=== PATIENT | male | born 1950 | race Caucasian/White ===

== ENCOUNTER 2020-05-01 09:00 | Outpatient (RCR) | payer OTHER, SELFPAY | END 2020-05-09 12:08 | disposition home or self-care (01) | LOC: HO.WCC 09:00 | PROVIDERS: PCP Podiatrist; Visit Provider Surgery | DX: Z09 Encounter for follow-up examination after completed treatment for conditions other than malignant neoplasm (principal); E11.9 Type 2 diabetes mellitus without complications; Z86.31 Personal history of diabetic foot ulcer; Z87.891 Personal history of nicotine dependence | CPT/HCPCS: 99212 ==

== ENCOUNTER 2020-08-13 11:28 | Outpatient (REF) | payer OTHER, SELFPAY ==
--- NOTE | 2020-08-13 | US_ITS ---
EXAMINATION: US RETROPERITONEAL LIMITED (RENAL ONLY) CLINICAL INFORMATION: Kidney stones. COMPARISON: Renal ultrasound 01/30/2020. CT abdomen and pelvis 01/05/2020. TECHNIQUE: Real-time imaging of the kidneys. Technically slightly limited study secondary to body habitus. FINDINGS: RIGHT KIDNEY: 11.5 x 5.3 x 5.6 cm (SAG x AP x TRV). The kidney is normal in size, contour, and echogenicity. Renal cortical thickness is normal. No calculi or focal parenchymal lesions. No hydronephrosis. LEFT KIDNEY: 10.2 x 5.4 x 5.2 cm (SAG x AP x TRV). The kidney is normal in size, contour, and echogenicity. Renal cortical thickness is normal. No focal parenchymal lesions or hydronephrosis. There are small echogenic stone mid to lower pole measuring 0.4 x 0.3 x 0.3 cm. There is no caliectasis. US/US renal BI IMPRESSION: Small echogenic stone mid /lower pole left kidney measuring 0.4 x 0.3 x 0.3 cm. A 5 x 2 mm calculi was seen in lower pole left kidney on previous CT abdomen exam 01/05/2020. No caliectasis or hydronephrosis seen on either kidney.
== END 2020-08-13 11:29 | disposition home or self-care (01) ==
LOC: HO.HMGCX 11:28
PROVIDERS: PCP Internal Medicine; Visit Provider Urology
DX: N20.0 Calculus of kidney (principal)
CPT/HCPCS: 76775

== ENCOUNTER → 2020-08-19 11:42 | Outpatient (BNVA) | payer OTHER, SELFPAY | PROVIDERS: PCP Internal Medicine; Visit Provider Urology ==

== ENCOUNTER 2020-09-11 10:24 | Inpatient (IN) | payer MEDICARE, OTHER, SELFPAY ==
[2020-09-11] VITALS (9 sets, daily range): BP systolic 109–129; BP diastolic 64–84; PULSE 61–101; RESP 18–247; TEMP 36.5–37.1; O2SAT 88–94; BMI 35.9
--- NOTE | ~2020-09-11 | CT_ITS ---
EXAMINATION: CT CHEST WITHOUT CONTRAST CLINICAL INFORMATION: Shortness of breath, patchy opacity on chest x-ray. COMPARISON: Chest radiograph 09/11/2020, CT abdomen 01/05/2020 TECHNIQUE: Multidetector volumetric CT imaging of the chest was done. Axial MIP volume rendering provided. Sagittal and coronal reformatted images were obtained. This CT examination was performed using dose optimization techniques as appropriate, variously including the following: *Automated exposure control *Adjustment of mA and/or kV according to patient size (this includes techniques or standardized protocols for targeted exams where dose is matched to indication/reason for exam; i.e. extremities or head) *Use of iterative reconstruction technique DLP: 338 mGy-cm FINDINGS: LUNGS: There are scattered bilateral patchy predominantly peripheral irregular geographic groundglass opacities upper and lower zones. There is no dense confluent lobar or segmental airspace consolidation. There is subsegmental atelectasis right medial base. The central airways are clear. No endobronchial lesion or bronchiectasis. No pneumothorax. MEDIASTINUM: There is mild aneurysmal enlargement ascending aorta measuring 4.4 cm in diameter. There are atherosclerotic calcifications coronary arteries. Heart size normal. No pericardial effusion. There is been prior median sternotomy. There are scattered mildly enlarged mediastinal nodes, largest right precarinal space 1.6 cm and left prevascular space near AP window 1.3 cm. There are some smaller nodes seen anteriorly and subcarinal region and possibly right inferior hilum. PLEURA: There is no pleural effusion. No pleural mass or thickening. AXILLA: No lymphadenopathy. UPPER ABDOMEN: Unremarkable. Small splenule under 1 cm left upper quadrant. OSSEOUS STRUCTURES: Prior median sternotomy. No acute bony abnormality. CT/CT chest wo con IMPRESSION: 1. Patchy irregular geographic groundglass opacities upper and lower zones. Findings may be seen with viral pneumonic process. Mild mediastinal adenopathy. No effusion. 2. Mild aneurysmal enlargement ascending aorta 4.4 cm.
--- NOTE | ~2020-09-11 | XR_ITS ---
EXAMINATION: XR CHEST CLINICAL INFORMATION: SOB. COMPARISON: Chest 01/05/2020 TECHNIQUE: Frontal view of the chest was obtained. FINDINGS: The lungs are well-expanded with patchy density seen in the left midlung and left lower lobe. The heart size and pulmonary vascularity is normal. There are median sternotomy sutures from previous intervention. No gross bony abnormality seen. XR/XR chest 1V IMPRESSION: New patchy opacity left midlung and lingula, likely developing infiltrate.
--- NOTE | 2020-09-11 10:30 | ED.SOB ---
HPI - SOB/Dyspnea General Chief Complaint: Dyspnea Stated Complaint: sob Time Seen by Provider: 09/11/20 10:30 Source: patient Mode of arrival: ambulatory Limitations: no limitations History of Present Illness HPI Narrative: Patient is 70 years old with history of diabetes hypertension CVA iron deficiency anemias history of DVT on Coumadin also with history of sleep apnea not using his CPAP comes here from Coumadin clinic for increased fatigue and shortness of breath with dry cough for last 2 weeks was saturating 81-86% at room air no fever no chills no leg swelling no chest pain patient denies any history of lung condition in the past MD elicited complaint: shortness of breath and cough Onset (ago): day(s) (10) Related Data Home Medications Medication Instructions Recorded Confirmed blood sugar diagnostic #10 ea 08/19/20 dulaglutide 1.5 mg/0.5 mL 3 mg SUBCUT QWEEK 08/19/20 subcutaneous pen injector gabapentin 300 mg capsule 300 mg PO TID 08/19/20 metoprolol tartrate 25 mg tablet 25 mg PO BID 08/19/20 omeprazole 20 mg capsule,delayed 20 mg PO DAILY 08/19/20 release pyridoxine (vitamin B6) 50 mg 50 mg PO DAILY 08/19/20 tablet valsartan 160 mg tablet 160 mg PO DAILY 08/19/20 warfarin 2.5 mg tablet 500f7.5 mg PO DAILY 08/19/20 Previous Rx's Medication Instructions Recorded pyridoxine (vitamin B6) 100 mg 100 mg PO DAILY #90 tab 08/19/20 tablet Allergies Allergy/AdvReac Type Severity Reaction Status Date / Time oxycodone [From PERCOCET] Allergy Unknown FEEL LIKE Unverified 04/17/20 16:28 I AM FLOATING Review of Systems Review of Systems: Constitutional : No Weight loss, No Fever, No Chills ENT/Mouth : No sore throat, No Rhinorrhea Eyes: No Eye Pain, No Swelling Cardiovascular : No Chest Pain, no palpitations Respiratory : ++ Cough, No Sputum, +shortness of breath Gastrointestinal : no Nausea, No Vomiting, No Diarrhea, No abdominal Pain, no black stools Genitourinary : No Dysuria, No Urinary Frequency Musculoskeletal : No joint pain, No Myalgias, No Joint Swelling Skin : No Skin Lesions, No rash Neuro : + Weakness, No Numbness, No Dizziness, No Headache Psych : No Anxiety/Panic, No Depression Heme/Lymph: No Bruising, No Lymphadenopathy Endocrine : No Polyuria, No Polydipsia All other systems reviewed and are negative [facility] Past Medical History Medical History MAXIMILIAN (acute kidney injury) B12 deficiency CVA (cerebral vascular accident) Diabetes Diverticulitis Gout HTN (hypertension) Venous insufficiency Social History Social History Alcohol intake: never Smoking Status: Former smoker Smoked in Last 30 Days: No Use of substances other than those prescribed or required for medical reasons: No Advance Directives: No Advance Directives Information Provided: No Physical Exam Vital Signs: Vital Signs: Last Vital Signs Temp 98.6 F 09/11/20 10:35 Pulse 101 H 09/11/20 10:35 Resp 21 H 09/11/20 10:35 BP 117/84 09/11/20 10:35 Pulse Ox 94 09/11/20 10:41 Body Mass Index 35.9 Const: General: cooperative, comfortable and in distress mild Nutritional Appearance: obese Orientation/consciousness: patient oriented x3 HENMT: Head: Yes normocephalic Ears: hearing grossly normal bilaterally Mouth: Normal oral and palatal mucosa present Eyes: General: appearance normal, both eyes and all related structures Neck: Neck: Yes full ROM, Yes no lymphadenopathy and Yes no JVD Chest: Chest palpation & inspection: normal inspection of the chest Resp: Effort & Inspection: normal respiratory effort Auscultation: crackles on the left, rales, no rhonchi and no wheezes Cardio: Jugular venous distension: no JVD Palpation: normal PMI Rate: regular rate Rhythm: regular rhythm Heart sounds: S1 normal heart sound present, S2 normal heart sound present and no murmurs Peripheral pulses: Peripheral pulses 2+ throughout GI: Inspection: Yes normal to inspection Palpation (GI): Soft to palpation and nontender Auscultation: normal bowel sounds Skin: General skin exam: no rashes or lesions noted Neuro: General: patient oriented x3 Extrem: General: Yes normal to inspection, Yes no calf tenderness and No pedal edema MDM - SOB/Dyspnea Differential Diagnosis Differential diagnosis: Likely congestive heart failure and pneumonia Lab Data Result diagrams: 09/11/20 10:50 09/11/20 10:49 Labs: Lab Results 09/11/20 09/11/20 09/11/20 Range/Units 10:48 10:49 10:49 WBC (4.8-10.8) X10*3/uL RBC (4.60-5.80) X10*6/uL Hgb (14.0-18.0) g/dl Hct (42-52) % MCV (80-98) fL MCH (27.0-33.0) pg MCHC (31.0-36.0) g/dl RDW (11.0-16.0) % Plt Count (160-400) X10*3/uL MPV (9.4-12.4) fL Immature Gran % (Auto) (0.0-0.4) % Neut % (Auto) (45-73) % Lymph % (Auto) (20-40) % [place] % (Auto) (2-11) % Eos % (Auto) (0-4) % Baso % (Auto) (0-2) % Lymph # (Auto) (1.2-4.9) X10*3/uL [place] # (Auto) (0.1-1.2) X10*3/uL Eos # (Auto) (0.0-0.4) X10*3/uL Baso # (Auto) (0.0-0.2) X10*3/uL Abs Immat Gran (auto) (0.00-0.03) X10*3/uL Absolute Neuts (auto) (2.0-8.3) X10*3/uL Absolute Nucleated RBC (0.0-0.012) X10*3/uL Nucleated RBC % (auto) (0.0-0.2) /100WBC Smear Tech's Comments PT 18.4 H (10.8-13.0) SEC INR 1.5 H (0.9-1.1) APTT 26.2 (24.1-38.0) SEC Sodium 134 L (135-145) mmol/L Potassium 5.0 (3.3-5.1) mmol/L Chloride 96 (96-108) mmol/L Carbon Dioxide 25 (22-29) mmol/L Anion Gap 18 (12-20) BUN 42 H (9-16) mg/dL Creatinine 1.62 H (0.5-1.4) mg/dL Estim Creat Clear Calc 55.9 Estimated GFR 42 Random Glucose 297 H (60-115) mg/dL Lactic Acid (0.5-2.0) mmol/L Calcium 9.6 (8.4-10.2) mg/dL Total Bilirubin 1.2 H (0.0-1.0) mg/dL Direct Bilirubin 0.8 H (0.0-0.5) mg/dL AST 57 H (5-37) U/L ALT 47 H (0-40) U/L Alkaline Phosphatase 63 (39-117) U/L Troponin I High Sens (<3.5-35.0) ng/L Total Protein 7.0 (6.5-8.0) g/dL Albumin 3.5 (3.5-5.0) g/dL COVID-19 (JEFF) Positive A (Negative) COVID-19 Clin Com See Note 09/11/20 09/11/20 09/11/20 Range/Units 10:50 10:50 10:50 WBC 7.0 (4.8-10.8) X10*3/uL RBC 5.57 (4.60-5.80) X10*6/uL Hgb 17.3 (14.0-18.0) g/dl Hct 51.1 (42-52) % MCV 91.7 (80-98) fL MCH 31.1 (27.0-33.0) pg MCHC 33.9 (31.0-36.0) g/dl RDW 13.2 (11.0-16.0) % Plt Count 163 (160-400) X10*3/uL MPV 10.8 (9.4-12.4) fL Immature Gran % (Auto) 0.3 (0.0-0.4) % Neut % (Auto) 83.5 H (45-73) % Lymph % (Auto) 10.5 L (20-40) % [place] % (Auto) 5.5 (2-11) % Eos % (Auto) 0.1 (0-4) % Baso % (Auto) 0.1 (0-2) % Lymph # (Auto) 0.7 L (1.2-4.9) X10*3/uL [place] # (Auto) 0.4 (0.1-1.2) X10*3/uL Eos # (Auto) 0.0 (0.0-0.4) X10*3/uL Baso # (Auto) 0.0 (0.0-0.2) X10*3/uL Abs Immat Gran (auto) 0.02 (0.00-0.03) X10*3/uL Absolute Neuts (auto) 5.8 (2.0-8.3) X10*3/uL Absolute Nucleated RBC 0.000 (0.0-0.012) X10*3/uL Nucleated RBC % (auto) 0.0 (0.0-0.2) /100WBC Smear Tech's Comments VERIFIED PT (10.8-13.0) SEC INR (0.9-1.1) APTT (24.1-38.0) SEC Sodium (135-145) mmol/L Potassium (3.3-5.1) mmol/L Chloride (96-108) mmol/L Carbon Dioxide (22-29) mmol/L Anion Gap (12-20) BUN (9-16) mg/dL Creatinine (0.5-1.4) mg/dL Estim Creat Clear Calc Estimated GFR Random Glucose (60-115) mg/dL Lactic Acid 2.3 H* (0.5-2.0) mmol/L Calcium (8.4-10.2) mg/dL Total Bilirubin (0.0-1.0) mg/dL Direct Bilirubin (0.0-0.5) mg/dL AST (5-37) U/L ALT (0-40) U/L Alkaline Phosphatase (39-117) U/L Troponin I High Sens 9.0 (<3.5-35.0) ng/L Total Protein (6.5-8.0) g/dL Albumin (3.5-5.0) g/dL COVID-19 (JEFF) (Negative) COVID-19 Clin Com ECG Data Attestation: I personally reviewed and interpreted this ECG as follows: Interpretation: Sinus tachycardia heart rate 105 beats per minute right bundle-branch block LVH no acute ST T wave changes no acute ischemia Discharge Plan Discharge Prescriptions: No Action metoprolol tartrate 25 mg tablet 25 mg PO BID RF: 0 pyridoxine (vitamin B6) 50 mg tablet 50 mg PO DAILY RF: 0 Trulicity 1.5 mg/0.5 mL pen injector 3 mg subcut QWEEK RF: 0 valsartan 160 mg tablet 160 mg PO DAILY RF: 0 warfarin 2.5 mg tablet 500f7.5 mg PO DAILY RF: 0 gabapentin 300 mg capsule 300 mg PO TID RF: 0 (DME) [employer] Ultra Blue Test Strip Strip See Rx Instructions strip .ROUTE .MEDSUPPLY Qty: 10 RF: 0 omeprazole 20 mg capsule,delayed release(DR/EC) 20 mg PO DAILY RF: 0 pyridoxine (vitamin B6) 100 mg tablet 100 mg PO DAILY Qty: 90 RF: 3
--- NOTE | 2020-09-11 10:40 | ECG_ITS ---
Test Reason : SOB Blood Pressure : / mmHG Vent. Rate : 105 BPM Atrial Rate : 105 BPM P-R Int : 180 ms QRS Dur : 134 ms QT Int : 376 ms P-R-T Axes : -18 -78 018 degrees QTc Int : 496 ms Sinus tachycardia Right bundle branch block Left anterior fascicular block Bifascicular block Minimal voltage criteria for LVH, may be normal variant Abnormal ECG When compared with ECG of 05-JAN-2020 19:00, [place] interval has decreased Vent. rate has increased BY 39 BPM Right bundle branch block is now Present Referred By: Deni Roman Electronically Signed By:MEHRDAD MCGREGOR MD
[2020-09-11 10:58] LABS: Basophils Percent Auto 0.1 % (0-2); Eosinophils Percent Auto 0.1 % (0-4); Hematocrit 51.1 % (42-52); Hemoglobin 17.3 g/dl (14.0-18.0); Imm Gran Abs Auto 0.02 X10*3/uL (0.00-0.03); Imm Gran Pct Auto 0.3 % (0.0-0.4); Lymphocytes Absolute Auto 0.7 X10*3/uL (1.2-4.9); Lymphocytes Percent Auto 10.5 % (20-40); MANUAL DIFF FLAG SCAN; Mean Corpuscular HGB Conc 33.9 g/dl (31.0-36.0); Mean Corpuscular Hemoglobin 31.1 pg (27.0-33.0); Mean Corpuscular Volume 91.7 fL (80-98); Mean Platelet Volume 10.8 fL (9.4-12.4); Monocytes Absolute Auto 0.4 X10*3/uL (0.1-1.2); Monocytes Percent Auto 5.5 % (2-11); Neutrophils Absolute Auto 5.8 X10*3/uL (2.0-8.3); Neutrophils Percent Auto 83.5 % (45-73); Platelet Count 163 X10*3/uL (160-400); Red Blood Count 5.57 X10*6/uL (4.60-5.80); Red Cell Distribution Width 13.2 % (11.0-16.0); SCAN SMEAR FLAG 1
[2020-09-11 11:07] LABS: INTERNATIONAL NORM RATIO 1.5 (0.9-1.1); Prothrombin Time 18.4 SEC (10.8-13.0)
[2020-09-11 11:09] LABS: Partial Thromboplastin Time 26.2 SEC (24.1-38.0)
[2020-09-11 11:15] LABS: COVID-19 Test Positive (Negative)
[2020-09-11 11:22] LABS: Alanine Aminotransferase 47 U/L (0-40); Albumin Level 3.5 g/dL (3.5-5.0); Alkaline Phosphatase 63 U/L (39-117); Anion Gap 18 (12-20); Aspartate Amino Transferase 57 U/L (5-37); Bilirubin Direct 0.8 mg/dL (0.0-0.5); Bilirubin Total 1.2 mg/dL (0.0-1.0); Blood Urea Nitrogen 42 mg/dL (9-16); Calcium 9.6 mg/dL (8.4-10.2); Carbon Dioxide 25 mmol/L (22-29); Chloride 96 mmol/L (96-108); Creatinine Clr Calc Pharmacy 55.9; Estimated Glomerular Filt Rate 42; Glucose Random 297 mg/dL (60-115); Sodium 134 mmol/L (135-145)
[2020-09-11 11:23] LABS: Lactic Acid 2.3 mmol/L (0.5-2.0)
[2020-09-11 11:32] LABS: SLIDE REVIEW VERIFIED
[2020-09-11 12:01] LABS: D Dimer 1269 NG/ML
[2020-09-11] MEDS: cefTRIAXone sodium 1 GM in 0.9 % Sodium Chloride 50 ML IV (12:03)
[2020-09-11 12:10] LABS: C Reactive Protein 7.01 mg/dL (< or = 0.50); Lactate Dehydrogenase 216 U/L (118-273)
[2020-09-11 12:31] LABS: Ferritin 1200 ng/mL (20-250)
[2020-09-11] MEDS: Doxycycline Hyclate 100 MG in 0.9 % Sodium Chloride 250 ML 166.67 MG IV (12:31)
[2020-09-11 12:37] LABS: Procalcitonin 0.15 ng/mL
[2020-09-11 12:55] LABS: Reflex Lactate? Lactic Acid Added
--- NOTE | 2020-09-11 12:58 | P.HPHOSP_ITS ---
History of Present Illness Date of Service: 09/11/20 Chief Complaint: Fatigue This is a 70 year year old male who presented to the emergency department due to fatigue. He went to the Coumadin clinic today to have his INR checked and the nurse there did not feel that he looked well so recommended that he come to the emergency department for evaluation. He reports approximately 10 days of feeling tired. He reports vague shortness of breath primarily with exertion. He reports a cough in the morning when he wakes up. He denies any fever, chills, muscle aches. He reports chronic issues with both taste and smell which does not seem to have changed recently. On arrival his oxygen saturation was 88% on room air. His workup was significant for opacity. He tested positive for coronavirus. His initial lactic acid was 2.3. Creatinine was 1.62 which is at his baseline. Were elevated with ferritin 1200, LDH 216, CRP 7.01. He was treated with antibiotic and IV dexamethasone. Given his requirement for oxygen a decision was made to admit him for further management. Review of Systems Review of Systems: Yes all other systems are reviewed and are negative Constitutional: Constitutional: Denies chills and Denies fever(s) Cardiovascular: Cardiovascular: Denies chest pain and Reports dyspnea Respiratory: Respiratory: Reports cough and Reports dyspnea Gastrointestinal: Gastrointestinal: Denies abdominal pain [facility] Medical History (Updated 09/11/20 @ 16:10 by Deni Roman MD) MAXIMILIAN (acute kidney injury) B12 deficiency CKD (chronic kidney disease) stage 3, GFR 30-59 ml/min CVA (cerebral vascular accident) Diabetes Diverticulitis Gout HTN (hypertension) ROBERTO (obstructive sleep apnea) Venous insufficiency Functional capacity: independent ambulation Family History (Updated 09/11/20 @ 13:05 by CLOTILDE Barrera) Mother No problems noted. Father No problems noted. Family history: reviewed and not pertinent Surgical History (Updated 09/11/20 @ 13:04 by CLOTILDE Barrera) S/P patent foramen ovale closure Social History (Updated 09/11/20 @ 13:05 by CLOTILDE Barrera) Household Members: None Alcohol intake: current Alcohol intake frequency: holidays/special occasions only Smoking Status: Former smoker Smoked in Last 30 Days: No Use of substances other than those prescribed or required for medical reasons: No Advance Directives: No Advance Directives Information Provided: No Meds Allergies Allergy/AdvReac Type Severity Reaction Status Date / Time oxycodone [From PERCOCET] Allergy Unknown FEEL LIKE Unverified 04/17/20 16:28 I AM FLOATING Active Medications: Current Medications Generic Name Dose Route Start Last Admin Trade Name Freq PRN Reason Stop Dose Admin Doxycycline Hyclate 100 mg/ 250 mls @ 166.67 mls/hr 09/11/20 11:36 09/11/20 12:31 Sodium Chloride IV 09/11/20 13:05 166.67 mls/hr ONCE ONE Administration Pharmacy Consult 1 each 09/11/20 12:12 Consult Rx Perform Med Rec MISCELLANE ONCE PRN Consult order Home Medications Medication Instructions Recorded Confirmed Last Taken Type blood sugar diagnostic #10 ea 08/19/20 Unknown History dulaglutide 1.5 mg/0.5 mL 1.5 mg SUBCUT QWEEK 08/19/20 09/11/20 Unknown History subcutaneous pen injector metoprolol tartrate 25 mg tablet 25 mg PO BID 08/19/20 09/11/20 Unknown History omeprazole 20 mg capsule,delayed 20 mg PO DAILY 08/19/20 09/11/20 Unknown History release valsartan 160 mg tablet 160 mg PO DAILY 08/19/20 09/11/20 Unknown History warfarin 2.5 mg tablet 5 mg PO DAILY@1600 08/19/20 09/11/20 Unknown History allopurinol 1 tab PO DAILY 09/11/20 09/11/20 Unknown History cyanocobalamin (vitamin B-12) 1 tab PO DAILY 09/11/20 09/11/20 Unknown History ferrous sulfate 1 tab PO DAILY 09/11/20 09/11/20 Unknown History Physical Exam Vital Signs and Narrative: Vital Signs: Last Vital Signs Temp 98.6 F 09/11/20 10:35 Pulse 99 09/11/20 12:06 Resp 247 H 09/11/20 12:06 BP 123/65 09/11/20 12:06 Pulse Ox 94 09/11/20 12:06 Body Mass Index 35.9 Const: General: comfortable, alert and awake Nutritional Appearance: well nourished and obese Orientation/consciousness: patient oriented x3 HENMT: Head: Yes normocephalic and Yes atraumatic Eyes: Sclerae: sclerae normal Chest: Chest palpation & inspection: normal inspection of the chest Resp: Effort & Inspection: able to speak in complete sentences and tachypneic Cardio: Rate: regular rate Rhythm: regular rhythm GI: Palpation (GI): Soft to palpation and nontender Skin: General skin exam: no rashes or lesions noted Neuro: General: patient oriented x3 Cranial nerves: Yes CN's II-XII intact bilaterally and Yes Bilaterally intact EOM present Extrem: General: Yes normal to inspection Psych: Attitude: cooperative Results Labs CBC and Chem 7: 09/11/20 10:50 09/11/20 10:49 Labs: Laboratory Results - last 24 hr 09/11/20 09/11/20 09/11/20 10:48 10:49 10:49 MCV MCH MCHC RDW Plt Count MPV Immature Gran % (Auto) Neut % (Auto) Lymph % (Auto) [place] % (Auto) Eos % (Auto) Baso % (Auto) Lymph # (Auto) [place] # (Auto) Eos # (Auto) Baso # (Auto) Abs Immat Gran (auto) Absolute Neuts (auto) Absolute Nucleated RBC Nucleated RBC % (auto) Smear Tech's Comments PT 18.4 H INR 1.5 H APTT 26.2 D-Dimer 1269 Anion Gap 18 Estim Creat Clear Calc 55.9 Estimated GFR 42 Random Glucose 297 H Lactic Acid Calcium 9.6 Ferritin 1200 H Total Bilirubin 1.2 H Direct Bilirubin 0.8 H AST 57 H ALT 47 H Alkaline Phosphatase 63 Lactate Dehydrogenase 216 Troponin I High Sens C-Reactive Protein 7.01 H Total Protein 7.0 Albumin 3.5 Procalcitonin COVID-19 (JEFF) Positive A COVID-19 Clin Com See Note 09/11/20 09/11/20 09/11/20 10:49 10:50 10:50 MCV 91.7 MCH 31.1 MCHC 33.9 RDW 13.2 Plt Count 163 MPV 10.8 Immature Gran % (Auto) 0.3 Neut % (Auto) 83.5 H Lymph % (Auto) 10.5 L [place] % (Auto) 5.5 Eos % (Auto) 0.1 Baso % (Auto) 0.1 Lymph # (Auto) 0.7 L [place] # (Auto) 0.4 Eos # (Auto) 0.0 Baso # (Auto) 0.0 Abs Immat Gran (auto) 0.02 Absolute Neuts (auto) 5.8 Absolute Nucleated RBC 0.000 Nucleated RBC % (auto) 0.0 Smear Tech's Comments VERIFIED PT INR APTT D-Dimer Anion Gap Estim Creat Clear Calc Estimated GFR Random Glucose Lactic Acid 2.3 H* Calcium Ferritin Total Bilirubin Direct Bilirubin AST ALT Alkaline Phosphatase Lactate Dehydrogenase Troponin I High Sens C-Reactive Protein Total Protein Albumin Procalcitonin 0.15 COVID-19 (JEFF) COVID-19 Clin Com 09/11/20 10:50 MCV MCH MCHC RDW Plt Count MPV Immature Gran % (Auto) Neut % (Auto) Lymph % (Auto) [place] % (Auto) Eos % (Auto) Baso % (Auto) Lymph # (Auto) [place] # (Auto) Eos # (Auto) Baso # (Auto) Abs Immat Gran (auto) Absolute Neuts (auto) Absolute Nucleated RBC Nucleated RBC % (auto) Smear Tech's Comments PT INR APTT D-Dimer Anion Gap Estim Creat Clear Calc Estimated GFR Random Glucose Lactic Acid Calcium Ferritin Total Bilirubin Direct Bilirubin AST ALT Alkaline Phosphatase Lactate Dehydrogenase Troponin I High Sens 9.0 C-Reactive Protein Total Protein Albumin Procalcitonin COVID-19 (JEFF) COVID-19 Clin Com Imaging Radiologist's Impressions: Impressions Chest X-Ray 09/11/20 10:40 IMPRESSION: New patchy opacity left midlung and lingula, likely developing infiltrate. Assessment and Plan (1) Pneumonia due to COVID-19 virus: Status: Acute (2) Acute respiratory failure with hypoxia: Status: Acute This is a 70-year-old male with diabetes department CKD, hypertension, PFO status post closure on coumadin, who presents to the emergency department with fatigue found to be hypoxic and COVID-19 positive Acute respiratory failure with hypoxia Pneumonia secondary to COVID-19 Viral Sepsis CRP 7.01, Ferritin 1200, LDH 216 Saturating 93 on 1 L -IV dexamethasone -supplemental o2 prn -albuterol inhaler prn for SOB PFO s/p repair -continue Coumadin -monitor INR daily CKD 3 Creatinine at baseline DM -SSI, POCs -convert Trulicity to Lantus ROBERTO Unable to tolerate CPAP Hypertension Continue valsartan metoprolol DVT prophylaxis-coumadin Code status - full code This case was discussed with Dr. Morgan
--- NOTE | 2020-09-11 13:32 | P.EN_ITS ---
Event Note Date of Service: 09/11/20 Event Note: 70yo M with HTN, DM2, hx of CVA, PFO s/p occlusion and anticoagula selvin with warfarin, ROBERTO not on CPAP, CKD3, gout, venous insufficiency presenting on d#10 of illness involving worsening fatigue, dyspnea and cough. no fever. no chest pain. sent in from coumadin clinic with SaO2 81-86 on RA on exam, mildly dyspneic. BP 114/68 HR 99 RR 17 Sa 94 on 1L Gen: in no acute distress HEENT: sclera anicteric, moist mucus membranes Neck: supple Lungs: no respiratory distress, auscultation deferred due to COVID-19 Heart: normal peripheral pulses Abd: soft, non-tender, non-distended Ext: no cyanosis, clubbing, or edema Skin: warm/well-perfused Neuro: alert and oriented x3, no focal findings Psych: appropriate affect labs notable for WBC 7 with 10.5% lymphs, INR 1.5, D-dimer 1269, SCr 1.62 (baselien), glu 297, LA 2.3, ferritin 1200, AST 57, ALT 47, CRP 7.01, hs-Tn-I 9, PCT 0.15, SARS-CoV2 PCR positive CXR with patchy LLL/lingular infiltrate plan admit to [facility] on isolation give dexamethasone 6 mg/d x10d. out of window for remdesivir. supplemental O2, encourage awake proning. continue warfarin anticoagulation, monitor INR + SCr, give basal/bolus insulin, continue valsartan + metoprolol. he is FULL CODE I left a message for the pt's sister Larissa [phone] at the pt's request
[2020-09-11] MEDS: 0.9 % Sodium Chloride Flush 3 ML SYRINGE IVFLUSH (15:48)
--- NOTE | 2020-09-11 16:40 | PC.NURSE ---
report given to [facility] [place]
[2020-09-11] MEDS: Warfarin Sodium 5 MG TABLET PO (17:23)
[2020-09-11] MEDS: Insulin Lispro 100 UNIT/ML 3 ML VIAL SUBCUT ×2 (18:23→20:48)
[2020-09-11 18:27] LABS: Glucose, Whole Blood 386 mg/dL (60-115)
[2020-09-11 19:31] LABS: ~Lactic Acid-LAB USE ONLY 1.7 mmol/L (0.5-2.0)
[2020-09-11 19:43] LABS: Troponin-I High Sensitivity 6.1 ng/L (<3.5-35.0)
[2020-09-11 20:31] LABS: Glucose, Whole Blood 413 mg/dL (60-115)
[2020-09-11] MEDS: Metoprolol Tartrate 25 MG TABLET PO (20:47)
[2020-09-11] MEDS: Insulin Lispro 100 UNIT/ML 3 ML VIAL 10 UNIT SUBCUT (20:48)
[2020-09-12] VITALS (9 sets, daily range): BP systolic 91–158; BP diastolic 50–79; PULSE 55–93; RESP 18–94; TEMP 35.8–37.1; O2SAT 90–98; BMI 35.9
[2020-09-12] MEDS: 0.9 % Sodium Chloride Flush 3 ML SYRINGE IVFLUSH ×4 (00:17→21:01)
[2020-09-12] MEDS: Omeprazole 20 MG CAPSULE.DR PO (05:54)
[2020-09-12 06:23] LABS: Basophils Percent Auto 0.2 % (0-2); Eosinophils Percent Auto 0.2 % (0-4); Hematocrit 42.9 % (42-52); Imm Gran Abs Auto 0.03 X10*3/uL (0.00-0.03); Imm Gran Pct Auto 0.5 % (0.0-0.4); Lymphocytes Absolute Auto 0.8 X10*3/uL (1.2-4.9); Lymphocytes Percent Auto 12.3 % (20-40); MANUAL DIFF FLAG SCAN; Mean Corpuscular HGB Conc 37.3 g/dl (31.0-36.0); Mean Corpuscular Hemoglobin 35.3 pg (27.0-33.0); Mean Corpuscular Volume 94.7 fL (80-98); Mean Platelet Volume 11.2 fL (9.4-12.4); Monocytes Absolute Auto 0.4 X10*3/uL (0.1-1.2); Monocytes Percent Auto 6.7 % (2-11); Neutrophils Absolute Auto 5.3 X10*3/uL (2.0-8.3); Neutrophils Percent Auto 80.1 % (45-73); Platelet Count 155 X10*3/uL (160-400); Red Blood Count 4.53 X10*6/uL (4.60-5.80); Red Cell Distribution Width 13.8 % (11.0-16.0); SCAN SMEAR FLAG 1; White Blood Count 6.6 X10*3/uL (4.8-10.8)
[2020-09-12 06:25] LABS: INTERNATIONAL NORM RATIO 1.7 (0.9-1.1); Prothrombin Time 20.1 SEC (10.8-13.0)
[2020-09-12 06:45] LABS: Anion Gap 17 (12-20); Blood Urea Nitrogen 45 mg/dL (9-16); Calcium 9.6 mg/dL (8.4-10.2); Carbon Dioxide 25 mmol/L (22-29); Chloride 97 mmol/L (96-108); Creatinine Clr Calc Pharmacy 64.2; Estimated Glomerular Filt Rate 50; Glucose Random 297 mg/dL (60-115); Potassium 4.6 mmol/L (3.3-5.1); Sodium 134 mmol/L (135-145)
[2020-09-12 07:53] LABS: Glucose, Whole Blood 295 mg/dL (60-115)
[2020-09-12 07:55] LABS: SLIDE REVIEW VERIFIED
[2020-09-12] MEDS: Cyanocobalamin (Vitamin B-12) 1,000 MCG TABLET 1000 MCG PO (08:17)
[2020-09-12] MEDS: Pyridoxine HCl (Vitamin B6) 50 MG TABLET 100 MG PO (08:17)
[2020-09-12] MEDS: Ferrous Sulfate 324 MG TABLET.DR PO (08:17)
[2020-09-12] MEDS: allopurinoL 100 MG TABLET PO (08:17)
[2020-09-12] MEDS: Insulin Glargine,Hum.rec.anlog 100 UNIT/ML 10 ML VIAL 20 UNIT SUBCUT (08:18)
[2020-09-12] MEDS: Insulin Lispro 100 UNIT/ML 3 ML VIAL SUBCUT ×4 (08:18→21:01)
[2020-09-12] MEDS: Metoprolol Tartrate 25 MG TABLET PO ×2 (08:19→21:00)
[2020-09-12] MEDS: Valsartan 160 MG TABLET PO (08:19)
[2020-09-12 08:22] LABS: Estimated Average Glucose 186 mg/dL; Hemoglobin A1c % 8.1 %
--- NOTE | 2020-09-12 08:29 | MHC.CM.PN ---
Patient is on the Covid Unit and unable to be reached by phone; CM spoke with Primary Contact/Sister/Larisas @ [phone]. Patient lives alone in a house and he is functionally independent. Home is the goal for dc and CM has initiated and will follow for dc planning. Patient uses the [facility] in [place] and his PCP is Dr. Jeanne Mendez.
--- NOTE | 2020-09-12 10:35 | HO.PM.IMPN ---
Subjective Subjective Date of Service: 09/12/20 Interval History: dyspnea remains on 4L O2 via NC no fever no chest pain no GI symptoms Physical Exam Vital Signs: Vital Signs: Last Vital Signs Temp 97.2 F 09/12/20 07:52 Pulse 60 09/12/20 08:19 Resp 18 09/12/20 07:52 BP 138/65 09/12/20 08:19 Pulse Ox 90 L 09/12/20 07:52 Body Mass Index 35.9 Gen: in no acute distress HEENT: sclera anicteric, moist mucus membranes Neck: supple Lungs: no respiratory distress, auscultation deferred due to COVID-19 Heart: normal peripheral pulses Abd: soft, non-tender, non-distended Ext: no cyanosis, clubbing, or edema Skin: warm/well-perfused Neuro: alert and oriented x3, no focal findings Psych: appropriate affect Objective Data Current Medications Generic Name Dose Route Start Last Admin Trade Name Freq PRN Reason Stop Dose Admin Acetaminophen 650 mg 09/11/20 15:03 Acetaminophen 325 Mg Tablet PO Q6H PRN Pain, Mild (Pain Scale 1-3) Albuterol Sulfate 2 puff 09/11/20 15:03 Albuterol Sulfate 90 Mcg 8 Gm Inhaler INHALE RQ4H PRN Shortness of Breath Allopurinol 100 mg 09/12/20 09:00 09/12/20 08:17 Allopurinol 100 Mg Tablet PO 100 mg DAILY MAHESH Administration Cyanocobalamin 1,000 mcg 09/12/20 09:00 09/12/20 08:17 Cyanocobalamin (Vitamin B-12) 1,000 Mcg Tablet PO 1,000 mcg DAILY MAHESH Administration Dexamethasone Sodium Phosphate 6 mg 09/12/20 09:00 09/12/20 08:17 Dexamethasone Sod Phosphate/Pf 10 Mg/Ml Vial IVPUSH 6 mg DAILY MAHESH Administration Docusate Sodium 100 mg 09/11/20 15:03 Docusate Sodium 100 Mg Capsule PO DAILY PRN Constipation Ferrous Sulfate 324 mg 09/12/20 09:00 09/12/20 08:17 Ferrous Sulfate 324 Mg Tablet. PO 324 mg DAILY MAHESH Administration Insulin Glargine 20 unit 09/12/20 09:00 09/12/20 08:18 Insulin Glargine,Hum.Rec.Anlog 100 Unit/Ml 10 Ml Vial SUBCUT 20 unit DAILY MAHESH Administration Insulin Human Lispro 0 unit 09/11/20 16:30 09/12/20 08:18 Insulin Lispro 100 Unit/Ml 3 Ml Vial SUBCUT 6 unit QIDACHS [facility] Administration Protocol Metoprolol Tartrate 25 mg 09/11/20 21:00 09/12/20 08:19 Metoprolol Tartrate 25 Mg Tablet PO 25 mg BID MAHESH Administration Protocol Omeprazole 20 mg 09/12/20 06:30 09/12/20 05:54 Omeprazole 20 Mg Capsule.Dr PO 20 mg DAILY@0630 [facility] Administration Ondansetron HCl 4 mg 09/11/20 15:03 Ondansetron Hcl 4 Mg/2 Ml Vial IVPUSH Q8H PRN Nausea and Vomiting Pharmacy Consult 1 each 09/11/20 12:12 Consult Rx Perform Med Rec MISCELLANE ONCE PRN Consult order Pyridoxine HCl 100 mg 09/12/20 09:00 09/12/20 08:17 Pyridoxine Hcl (Vitamin B6) 50 Mg Tablet PO 100 mg DAILY [facility] Administration Sodium Chloride 3 ml 09/11/20 16:00 09/12/20 08:19 0.9 % Sodium Chloride Flush 3 Ml Syringe IVFLUSH 3 ml QSHIFT [facility] Administration Valsartan 160 mg 09/12/20 09:00 09/12/20 08:19 Valsartan 160 Mg Tablet PO 160 mg DAILY [facility] Administration Protocol Warfarin Sodium 5 mg 09/11/20 16:00 09/11/20 17:23 Warfarin Sodium 5 Mg Tablet PO 5 mg DAILY@1600 [facility] Administration Labs CBC & Chem 7: 09/12/20 05:29 09/12/20 05:29 Labs: Laboratory Results - last 24 hr 09/11/20 09/11/20 09/11/20 10:48 10:49 10:49 WBC RBC Hgb Hct MCV MCH MCHC RDW Plt Count MPV Immature Gran % (Auto) Neut % (Auto) Lymph % (Auto) [place] % (Auto) Eos % (Auto) Baso % (Auto) Lymph # (Auto) [place] # (Auto) Eos # (Auto) Baso # (Auto) Abs Immat Gran (auto) Absolute Neuts (auto) Absolute Nucleated RBC Nucleated RBC % (auto) Smear Tech's Comments PT 18.4 H INR 1.5 H APTT 26.2 D-Dimer 1269 Sodium 134 L Potassium 5.0 Chloride 96 Carbon Dioxide 25 Anion Gap 18 BUN 42 H Creatinine 1.62 H Estim Creat Clear Calc 55.9 Estimated GFR 42 POC Glucose Random Glucose 297 H Estimat Average Glucose Hemoglobin A1c % Lactic Acid Lactic Acid Fup @ 2Hr Calcium 9.6 Ferritin 1200 H Total Bilirubin 1.2 H Direct Bilirubin 0.8 H AST 57 H ALT 47 H Alkaline Phosphatase 63 Lactate Dehydrogenase 216 Troponin I High Sens C-Reactive Protein 7.01 H Total Protein 7.0 Albumin 3.5 Procalcitonin COVID-19 (JEFF) Positive A COVID-19 Clin Com See Note 09/11/20 09/11/20 09/11/20 10:49 10:50 10:50 WBC 7.0 RBC 5.57 Hgb 17.3 Hct 51.1 MCV 91.7 MCH 31.1 MCHC 33.9 RDW 13.2 Plt Count 163 MPV 10.8 Immature Gran % (Auto) 0.3 Neut % (Auto) 83.5 H Lymph % (Auto) 10.5 L [place] % (Auto) 5.5 Eos % (Auto) 0.1 Baso % (Auto) 0.1 Lymph # (Auto) 0.7 L [place] # (Auto) 0.4 Eos # (Auto) 0.0 Baso # (Auto) 0.0 Abs Immat Gran (auto) 0.02 Absolute Neuts (auto) 5.8 Absolute Nucleated RBC 0.000 Nucleated RBC % (auto) 0.0 Smear Tech's Comments VERIFIED PT INR APTT D-Dimer Sodium Potassium Chloride Carbon Dioxide Anion Gap BUN Creatinine Estim Creat Clear Calc Estimated GFR POC Glucose Random Glucose Estimat Average Glucose Hemoglobin A1c % Lactic Acid 2.3 H* Lactic Acid Fup @ 2Hr Calcium Ferritin Total Bilirubin Direct Bilirubin AST ALT Alkaline Phosphatase Lactate Dehydrogenase Troponin I High Sens C-Reactive Protein Total Protein Albumin Procalcitonin 0.15 COVID-19 (JEFF) COVID-19 Clin [employer] 09/11/20 09/11/20 09/11/20 10:50 18:14 18:50 WBC RBC Hgb Hct MCV MCH MCHC RDW Plt Count MPV Immature Gran % (Auto) Neut % (Auto) Lymph % (Auto) [place] % (Auto) Eos % (Auto) Baso % (Auto) Lymph # (Auto) [place] # (Auto) Eos # (Auto) Baso # (Auto) Abs Immat Gran (auto) Absolute Neuts (auto) Absolute Nucleated RBC Nucleated RBC % (auto) Smear Tech's Comments PT INR APTT D-Dimer Sodium Potassium Chloride Carbon Dioxide Anion Gap BUN Creatinine Estim Creat Clear Calc Estimated GFR POC Glucose 386 H* Random Glucose Estimat Average Glucose Hemoglobin A1c % Lactic Acid Lactic Acid Fup @ 2Hr 1.7 Calcium Ferritin Total Bilirubin Direct Bilirubin AST ALT Alkaline Phosphatase Lactate Dehydrogenase Troponin I High Sens 9.0 C-Reactive Protein Total Protein Albumin Procalcitonin COVID-19 (JEFF) [facility]-[employer] 09/11/20 09/11/20 09/12/20 18:50 20:19 05:29 WBC 6.6 RBC 4.53 L Hgb 16.0 Hct 42.9 MCV 94.7 MCH 35.3 H MCHC 37.3 H RDW 13.8 Plt Count 155 L MPV 11.2 Immature Gran % (Auto) 0.5 H Neut % (Auto) 80.1 H Lymph % (Auto) 12.3 L [place] % (Auto) 6.7 Eos % (Auto) 0.2 Baso % (Auto) 0.2 Lymph # (Auto) 0.8 L [place] # (Auto) 0.4 Eos # (Auto) 0.0 Baso # (Auto) 0.0 Abs Immat Gran (auto) 0.03 Absolute Neuts (auto) 5.3 Absolute Nucleated RBC 0.000 Nucleated RBC % (auto) 0.0 Smear Tech's Comments VERIFIED PT INR APTT D-Dimer Sodium Potassium Chloride Carbon Dioxide Anion Gap BUN Creatinine Estim Creat Clear Calc Estimated GFR POC Glucose 413 H* Random Glucose Estimat Average Glucose Hemoglobin A1c % Lactic Acid Lactic Acid Fup @ 2Hr Calcium Ferritin Total Bilirubin Direct Bilirubin AST ALT Alkaline Phosphatase Lactate Dehydrogenase Troponin I High Sens 6.1 C-Reactive Protein Total Protein Albumin Procalcitonin COVID-19 (JFEF) COVID-19 [employer] 09/12/20 09/12/20 09/12/20 05:29 05:29 05:29 WBC RBC Hgb Hct MCV MCH MCHC RDW Plt Count MPV Immature Gran % (Auto) Neut % (Auto) Lymph % (Auto) [place] % (Auto) Eos % (Auto) Baso % (Auto) Lymph # (Auto) [place] # (Auto) Eos # (Auto) Baso # (Auto) Abs Immat Gran (auto) Absolute Neuts (auto) Absolute Nucleated RBC Nucleated RBC % (auto) Smear Tech's Comments PT 20.1 H INR 1.7 H APTT D-Dimer Sodium 134 L Potassium 4.6 Chloride 97 Carbon Dioxide 25 Anion Gap 17 BUN 45 H Creatinine 1.41 H Estim Creat Clear Calc 64.2 Estimated GFR 50 POC Glucose Random Glucose 297 H Estimat Average Glucose 186 Hemoglobin A1c % 8.1 Lactic Acid Lactic Acid Fup @ 2Hr Calcium 9.6 Ferritin Total Bilirubin Direct Bilirubin AST ALT Alkaline Phosphatase Lactate Dehydrogenase Troponin I High Sens C-Reactive Protein Total Protein Albumin Procalcitonin COVID-19 (JEFF) COVID-19 Clin Com 09/12/20 07:45 WBC RBC Hgb Hct MCV MCH MCHC RDW Plt Count MPV Immature Gran % (Auto) Neut % (Auto) Lymph % (Auto) [place] % (Auto) Eos % (Auto) Baso % (Auto) Lymph # (Auto) [place] # (Auto) Eos # (Auto) Baso # (Auto) Abs Immat Gran (auto) Absolute Neuts (auto) Absolute Nucleated RBC Nucleated RBC % (auto) Smear Tech's Comments PT INR APTT D-Dimer Sodium Potassium Chloride Carbon Dioxide Anion Gap BUN Creatinine Estim Creat Clear Calc Estimated GFR POC Glucose 295 H Random Glucose Estimat Average Glucose Hemoglobin A1c % Lactic Acid Lactic Acid Fup @ 2Hr Calcium Ferritin Total Bilirubin Direct Bilirubin AST ALT Alkaline Phosphatase Lactate Dehydrogenase Troponin I High Sens C-Reactive Protein Total Protein Albumin Procalcitonin COVID-19 (JEFF) COVID-19 Clin Com Assessment and Plan (1) Acute respiratory failure with hypoxia: Status: Acute (2) Pneumonia due to COVID-19 virus: Status: Acute Assessment and Plan: hospital d#2 70yo M with HTN, DM2, hx of CVA, PFO s/p occlusion and anticoagulated with warfarin, ROBERTO not on CPAP, CKD3, gout, venous insufficiency sent in from [facility] with hypoxia, SaO2 81-86% on RA COVID-19 positive; symptoms for 10d prior to admission # COVID-19 pneumonia - dexamethasone d#09/10. ID consult though likely out of window for remdesivir. trend inflammatory markers. # acute hypoxic respiratory failure - supplemental O2, wean as tolerated, encourage awake proning # viral sepsis - due to COVID-19; doubt bacterial superinfection # lactic acidosis - resolved # HTN - continue valsartan + metoprolol # CKD3 - SCr stable/improved, avoid nephrotoxins # PFO closure anticoagulated with warfarin - continue warfarin 5 mg/d (give extra 2.5 mg today), monitor daily INR # DM2, A1c 8.1 - basal/bolus insulin [on Trulicity as outpt] # gout - continue allopurinol # VTE ppx - warfarin I updated the pt's sister Larissa by phone @ [phone]
[2020-09-12 12:36] LABS: Glucose, Whole Blood 365 mg/dL (60-115)
--- NOTE | 2020-09-12 16:30 | P.CNID_ITS ---
History of Present Illness Data of Consult Service Date: 09/12/20 Requesting physician: Judi Morgan / [facility] Primary Care Provider: Jeanne Mendez MD [facility] Reason for consult: COVID He presents with 10 days cough and shortness of breath No one else is ill He is COVID positive Review of Systems Review of Systems: Yes all other systems are reviewed and are negative [facility] Past Medical History Medical History MAXIMILIAN (acute kidney injury) B12 deficiency CKD (chronic kidney disease) stage 3, GFR 30-59 ml/min CVA (cerebral vascular accident) Diabetes Diverticulitis Gout HTN (hypertension) ROBERTO (obstructive sleep apnea) Venous insufficiency Functional capacity: independent ambulation Family History Family History Mother No problems noted. Father No problems noted. Family history: reviewed and not pertinent Surgical History Surgical History S/P patent foramen ovale closure Social History Social History Household Members: None Housing: House Do you presently have visiting nurse or other home services: No Alcohol intake: current Alcohol intake frequency: holidays/special occasions only Smoking Status: Former smoker Smoked in Last 30 Days: No Use of substances other than those prescribed or required for medical reasons: No Currently Displaying Signs/Symptoms of Drug Intoxication Withdrawal: No Have you been hit, kicked, punched, or otherwise hurt by someone within the past year? If so, by whom?: No Do you feel safe in your current relationship?: No Current Relationship Is there a partner from a previous relationship who is making you feel unsafe now?: No Are you made to feel afraid or neglected: No Advance Directives: No Advance Directives Information Provided: No Do you have thoughts of harming others: None Do you have a plan to hurt others: No Plan Recently lost weight without trying: No Meds Allergies Allergy/AdvReac Type Severity Reaction Status Date / Time oxycodone [From PERCOCET] Allergy Unknown FEEL LIKE Unverified 04/17/20 16:28 I AM FLOATING Active Medications: Current Medications Generic Name Dose Route Start Last Admin Trade Name Freq PRN Reason Stop Dose Admin Acetaminophen 650 mg 09/11/20 15:03 Acetaminophen 325 Mg Tablet PO Q6H PRN Pain, Mild (Pain Scale 1-3) Albuterol Sulfate 2 puff 09/11/20 15:03 Albuterol Sulfate 90 Mcg 8 Gm Inhaler INHALE RQ4H PRN Shortness of Breath Allopurinol 100 mg 09/12/20 09:00 09/12/20 08:17 Allopurinol 100 Mg Tablet PO 100 mg DAILY MAHESH Administration Cyanocobalamin 1,000 mcg 09/12/20 09:00 09/12/20 08:17 Cyanocobalamin (Vitamin B-12) 1,000 Mcg Tablet PO 1,000 mcg DAILY MAHESH Administration Dexamethasone Sodium Phosphate 6 mg 09/12/20 09:00 09/12/20 08:17 Dexamethasone Sod Phosphate/Pf 10 Mg/Ml Vial IVPUSH 6 mg DAILY MAHESH Administration Docusate Sodium 100 mg 09/11/20 15:03 Docusate Sodium 100 Mg Capsule PO DAILY PRN Constipation Ferrous Sulfate 324 mg 09/12/20 09:00 09/12/20 08:17 Ferrous Sulfate 324 Mg Tablet. PO 324 mg DAILY MAHESH Administration Insulin Glargine 20 unit 09/12/20 09:00 09/12/20 08:18 Insulin Glargine,Hum.Rec.Anlog 100 Unit/Ml 10 Ml Vial SUBCUT 20 unit DAILY [facility] Administration Insulin Human Lispro 0 unit 09/11/20 16:30 09/12/20 12:41 Insulin Lispro 100 Unit/Ml 3 Ml Vial SUBCUT 10 unit QIDACHS [facility] Administration Protocol Metoprolol Tartrate 25 mg 09/11/20 21:00 09/12/20 08:19 Metoprolol Tartrate 25 Mg Tablet PO 25 mg BID [facility] Administration Protocol Omeprazole 20 mg 09/12/20 06:30 09/12/20 05:54 Omeprazole 20 Mg Capsule. PO 20 mg DAILY@0630 [facility] Administration Ondansetron HCl 4 mg 09/11/20 15:03 Ondansetron Hcl 4 Mg/2 Ml Vial IVPUSH Q8H PRN Nausea and Vomiting Pharmacy Consult 1 each 09/11/20 12:12 Consult Rx Perform Med Rec MISCELLANE ONCE PRN Consult order Pyridoxine HCl 100 mg 09/12/20 09:00 09/12/20 08:17 Pyridoxine Hcl (Vitamin B6) 50 Mg Tablet PO 100 mg DAILY MAHESH Administration Sodium Chloride 3 ml 09/11/20 16:00 09/12/20 08:19 0.9 % Sodium Chloride Flush 3 Ml Syringe IVFLUSH 3 ml QSHIFT [facility] Administration Valsartan 160 mg 09/12/20 09:00 09/12/20 08:19 Valsartan 160 Mg Tablet PO 160 mg DAILY [facility] Administration Protocol Warfarin Sodium 5 mg 09/11/20 16:00 09/11/20 17:23 Warfarin Sodium 5 Mg Tablet PO 5 mg DAILY@1600 MAHESH Administration Warfarin Sodium 2.5 mg 09/12/20 18:00 Warfarin Sodium 2.5 Mg Tablet PO 09/12/20 18:01 ONCE@1800 [facility] Home Medications Medication Instructions Recorded Confirmed Last Taken Type blood sugar diagnostic #10 ea 08/19/20 Unknown History dulaglutide 1.5 mg/0.5 mL 1.5 mg SUBCUT QWEEK 08/19/20 09/11/20 Unknown History subcutaneous pen injector metoprolol tartrate 25 mg tablet 25 mg PO BID 08/19/20 09/11/20 Unknown History omeprazole 20 mg capsule,delayed 20 mg PO DAILY 08/19/20 09/11/20 Unknown History release valsartan 160 mg tablet 160 mg PO DAILY 08/19/20 09/11/20 Unknown History warfarin 2.5 mg tablet 5 mg PO DAILY@1600 08/19/20 09/11/20 Unknown History allopurinol 1 tab PO DAILY 09/11/20 09/11/20 Unknown History cyanocobalamin (vitamin B-12) 1 tab PO DAILY 09/11/20 09/11/20 Unknown History ferrous sulfate 1 tab PO DAILY 09/11/20 09/11/20 Unknown History Physical Exam Vital Signs: Vital Signs: Last Vital Signs Temp 98.7 F 09/12/20 12:00 Pulse 74 09/12/20 12:00 Resp 18 09/12/20 12:00 BP 91/50 L 09/12/20 11:20 Pulse Ox 93 09/12/20 12:00 Body Mass Index 35.9 Const: General: cooperative Orientation/consciousness: patient oriented x3 HENMT: Head: Yes normal to inspection Mouth: Normal oral and palatal mucosa present Eyes: General: appearance normal, both eyes and all related structures Resp: Effort & Inspection: normal respiratory effort Cardio: Rate: regular rate Rhythm: regular rhythm GI: Inspection: Yes normal to inspection : General: Yes no CVA tenderness Back/Spine/Pelvis: Back: no CVA tenderness Skin: General skin exam: no rashes or lesions noted Neuro: General: patient oriented x3 Extrem: General: Yes normal to inspection Results Labs CBC & Chem 7: 09/12/20 05:29 09/12/20 05:29 Labs: Short CBC 09/11/20 09/12/20 Range/Units 10:49 05:29 WBC 6.6 (4.8-10.8) X10*3/uL Hgb 16.0 (14.0-18.0) g/dl Hct 42.9 (42-52) % Plt Count 155 L (160-400) X10*3/uL AST 57 H (5-37) U/L BMP 09/12/20 05:29 Sodium 134 L Potassium 4.6 Chloride 97 Carbon Dioxide 25 BUN 45 H Creatinine 1.41 H Calcium 9.6 Microbiology Microbiology Results: Microbiology 09/11/20 10:52 Blood - Venous Blood Culture - Preliminary No growth after 24 hours. 09/11/20 10:49 Blood - Venous Blood Culture - Preliminary No growth after 24 hours. Assessment and Plan (1) Acute respiratory failure with hypoxia: Problem details: COVID with 10 days symptoms He has hypoxia on 2 liters Status: Acute Continue Dexamethasone Remdesivir Oxygen support (2) Pneumonia due to COVID-19 virus: Status: Acute
[2020-09-12 16:52] LABS: Glucose, Whole Blood 480 mg/dL (60-115)
[2020-09-12] MEDS: Warfarin Sodium 2.5 MG TABLET PO (17:17)
[2020-09-12] MEDS: Warfarin Sodium 5 MG TABLET PO (17:17)
--- NOTE | 2020-09-12 17:51 | PC.NURSE ---
Addendum entered by Naty Owens RN 09/12/20 18:29: MD added orders for labs and 10 units insulin IV. Original Note: Patient's 1630 POC was 480. No s/sx of hyperglycemia. MD notified. Sliding scale coverage given.
[2020-09-12] MEDS: Insulin Regular, Human 100 UNIT/ML 3 ML VIAL 10 UNIT IVPUSH (18:43)
[2020-09-12 18:58] LABS: HCO3 VBG 21 mmol/L; PCO2 VBG 36 mmHg; PO2 VBG 40 mmHg; pH VBG 7.37 (7.32-7.43)
[2020-09-12 18:59] LABS: Base Excess VBG -2.9 mmol/L
[2020-09-12 19:35] LABS: Anion Gap 17 (12-20); Blood Urea Nitrogen 63 mg/dL (9-16); Calcium 10.3 mg/dL (8.4-10.2); Carbon Dioxide 26 mmol/L (22-29); Chloride 95 mmol/L (96-108); Creatinine Clr Calc Pharmacy 44.4; Estimated Glomerular Filt Rate 32; Glucose Random 452 mg/dL (60-115); Potassium 4.5 mmol/L (3.3-5.1); Sodium 133 mmol/L (135-145)
[2020-09-12 19:47] LABS: Acetone, serum QL Negative (Negative)
[2020-09-12 19:56] LABS: Glucose, Whole Blood 244 mg/dL (60-115)
[2020-09-12] MEDS: Remdesivir 200 MG in 0.9 % Sodium Chloride 210 ML 105 MG IV (21:00)
[2020-09-13 04:00] VITALS: BP 113/57; PULSE 50; RESP 18; TEMP 36.2; O2SAT 96
[2020-09-13] MEDS: Omeprazole 20 MG CAPSULE.DR PO (05:52)
[2020-09-13 06:36] LABS: Basophils Percent Auto 0.1 % (0-2); MANUAL DIFF FLAG SCAN; Mean Corpuscular Hemoglobin 31.4 pg (27.0-33.0); PLT CLUMP 1; SCAN SMEAR FLAG 1
[2020-09-13 06:38] LABS: Imm Gran Abs Auto 0.08 X10*3/uL (0.00-0.03); Imm Gran Pct Auto 0.8 % (0.0-0.4); Lymphocytes Percent Auto 9.9 % (20-40); Mean Corpuscular HGB Conc 34.1 g/dl (31.0-36.0); Mean Corpuscular Volume 92.2 fL (80-98); Mean Platelet Volume 11.4 fL (9.4-12.4); Monocytes Absolute Auto 0.5 X10*3/uL (0.1-1.2); Monocytes Percent Auto 4.8 % (2-11); Neutrophils Absolute Auto 8.5 X10*3/uL (2.0-8.3); Neutrophils Percent Auto 84.4 % (45-73); Platelet Count 148 X10*3/uL (160-400); Red Blood Count 4.77 X10*6/uL (4.60-5.80); Red Cell Distribution Width 13.2 % (11.0-16.0); White Blood Count 10.1 X10*3/uL (4.8-10.8)
[2020-09-13 06:59] LABS: Prothrombin Time 24.4 SEC (10.8-13.0)
[2020-09-13 07:08] LABS: Alanine Aminotransferase 48 U/L (0-40); Albumin Level 3.2 g/dL (3.5-5.0); Alkaline Phosphatase 61 U/L (39-117); Anion Gap 14 (12-20); Aspartate Amino Transferase 43 U/L (5-37); Bilirubin Total 0.9 mg/dL (0.0-1.0); Blood Urea Nitrogen 64 mg/dL (9-16); C Reactive Protein 2.12 mg/dL (< or = 0.50); Calcium 10.1 mg/dL (8.4-10.2); Carbon Dioxide 29 mmol/L (22-29); Chloride 97 mmol/L (96-108); Creatinine Clr Calc Pharmacy 55.9; Estimated Glomerular Filt Rate 42; Glucose Random 287 mg/dL (60-115); Lactate Dehydrogenase 148 U/L (118-273); Potassium 4.5 mmol/L (3.3-5.1); Sodium 135 mmol/L (135-145); Total Protein 6.1 g/dL (6.5-8.0)
[2020-09-13 07:17] LABS: D Dimer 2933 NG/ML
[2020-09-13 07:23] LABS: Ferritin 640 ng/mL (20-250)
[2020-09-13 07:49] LABS: Glucose, Whole Blood 273 mg/dL (60-115)
[2020-09-13 07:54] LABS: SLIDE REVIEW VERIFIED
[2020-09-13 08:00] VITALS: BP 120/57; PULSE 65; RESP 22; TEMP 36.1; O2SAT 95
[2020-09-13] MEDS: Insulin Lispro 100 UNIT/ML 3 ML VIAL SUBCUT ×4 (08:19→20:19)
[2020-09-13] MEDS: Insulin Glargine,Hum.rec.anlog 100 UNIT/ML 10 ML VIAL 30 UNIT SUBCUT (08:20)
[2020-09-13] MEDS: 0.9 % Sodium Chloride Flush 3 ML SYRINGE IVFLUSH ×2 (08:21→15:00)
[2020-09-13] MEDS: Metoprolol Tartrate 25 MG TABLET PO (08:21)
[2020-09-13] MEDS: Valsartan 160 MG TABLET PO (08:21)
[2020-09-13] MEDS: allopurinoL 100 MG TABLET PO (08:21)
[2020-09-13] MEDS: Pyridoxine HCl (Vitamin B6) 50 MG TABLET 100 MG PO (08:21)
[2020-09-13] MEDS: Cyanocobalamin (Vitamin B-12) 1,000 MCG TABLET 1000 MCG PO (08:21)
[2020-09-13] MEDS: Ferrous Sulfate 324 MG TABLET.DR PO (08:21)
[2020-09-13 11:24] LABS: Glucose, Whole Blood 325 mg/dL (60-115)
[2020-09-13 12:00] VITALS: BP 113/59; PULSE 52; RESP 22; TEMP 36.1; O2SAT 94
--- NOTE | 2020-09-13 13:00 | P.PNIM_ITS ---
Subjective Subjective Date of Service: 09/13/20 Interval History: around noon today, he had multiple sinus pauses, longest 4.7sec he's been told in the past that his HR runs low he doesn't remember who is librarian is he was a little lightheaded around noon denies chest pain remains on 4L via NC hyperglycemic but not in DKA; got 10u of IV insulin last night in addition to Lantus/Humalog Physical Exam Vital Signs: Vital Signs: Last Vital Signs Temp 97.0 F 09/13/20 12:00 Pulse 52 09/13/20 12:00 Resp 22 H 09/13/20 12:00 BP 113/59 L 09/13/20 12:00 Pulse Ox 94 09/13/20 12:00 Body Mass Index 35.9 Gen: in no acute distress HEENT: sclera anicteric, moist mucus membranes Neck: supple Lungs: no respiratory distress, auscultation deferred due to COVID-19 Heart: normal peripheral pulses, bradycardic Abd: soft, non-tender, non-distended Ext: no cyanosis, clubbing, or edema Skin: warm/well-perfused Neuro: alert and oriented x3, no focal findings Psych: appropriate affect Objective Data Current Medications Generic Name Dose Route Start Last Admin Trade Name Freq PRN Reason Stop Dose Admin Acetaminophen 650 mg 09/11/20 15:03 Acetaminophen 325 Mg Tablet PO Q6H PRN Pain, Mild (Pain Scale 1-3) Albuterol Sulfate 2 puff 09/11/20 15:03 Albuterol Sulfate 90 Mcg 8 Gm Inhaler INHALE RQ4H PRN Shortness of Breath Allopurinol 100 mg 09/12/20 09:00 09/13/20 08:21 Allopurinol 100 Mg Tablet PO 100 mg DAILY MAHESH Administration Cyanocobalamin 1,000 mcg 09/12/20 09:00 09/13/20 08:21 Cyanocobalamin (Vitamin B-12) 1,000 Mcg Tablet PO 1,000 mcg DAILY MAHESH Administration Dexamethasone Sodium Phosphate 6 mg 09/12/20 09:00 09/13/20 08:44 Dexamethasone Sod Phosphate/Pf 10 Mg/Ml Vial IVPUSH 6 mg DAILY MAHESH Administration Docusate Sodium 100 mg 09/11/20 15:03 Docusate Sodium 100 Mg Capsule PO DAILY PRN Constipation Ferrous Sulfate 324 mg 09/12/20 09:00 09/13/20 08:21 Ferrous Sulfate 324 Mg Tablet. PO 324 mg DAILY [facility] Administration Remdesivir 100 mg/ Sodium 230 mls @ 115 mls/hr 09/13/20 20:00 Chloride IV 09/16/20 21:59 Q24H [facility] Insulin Glargine 30 unit 09/13/20 09:00 09/13/20 08:20 Insulin Glargine,Hum.Rec.Anlog 100 Unit/Ml 10 Ml Vial SUBCUT 30 unit DAILY [facility] Administration Insulin Human Lispro 0 unit 09/11/20 16:30 09/13/20 12:40 Insulin Lispro 100 Unit/Ml 3 Ml Vial SUBCUT 12 unit QIDACHS [facility] Administration Protocol Omeprazole 20 mg 09/12/20 06:30 09/13/20 05:52 Omeprazole 20 Mg Capsule. PO 20 mg DAILY@0630 [facility] Administration Ondansetron HCl 4 mg 09/11/20 15:03 Ondansetron Hcl 4 Mg/2 Ml Vial IVPUSH Q8H PRN Nausea and Vomiting Pharmacy Consult 1 each 09/11/20 12:12 Consult Rx Perform Med Rec MISCELLANE ONCE PRN Consult order Pyridoxine HCl 100 mg 09/12/20 09:00 09/13/20 08:21 Pyridoxine Hcl (Vitamin B6) 50 Mg Tablet PO 100 mg DAILY [facility] Administration Sodium Chloride 3 ml 09/11/20 16:00 09/13/20 08:21 0.9 % Sodium Chloride Flush 3 Ml Syringe IVFLUSH 3 ml QSHIFT [facility] Administration Valsartan 160 mg 09/12/20 09:00 09/13/20 08:21 Valsartan 160 Mg Tablet PO 160 mg DAILY [facility] Administration Protocol Warfarin Sodium 5 mg 09/11/20 16:00 09/12/20 17:17 Warfarin Sodium 5 Mg Tablet PO 5 mg DAILY@1600 [facility] Administration Labs CBC & Chem 7: 09/13/20 06:04 09/13/20 06:04 Labs: Laboratory Results - last 24 hr 09/12/20 09/12/20 09/12/20 15:31 18:51 18:51 WBC RBC Hgb Hct MCV MCH MCHC RDW Plt Count MPV Immature Gran % (Auto) Neut % (Auto) Lymph % (Auto) Nolan % (Auto) Eos % (Auto) Baso % (Auto) Lymph # (Auto) Nolan # (Auto) Eos # (Auto) Baso # (Auto) Abs Immat Gran (auto) Absolute Neuts (auto) Absolute Nucleated RBC Nucleated RBC % (auto) Smear Tech's Comments PT INR D-Dimer VBG pH 7.37 VBG pCO2 36 VBG pO2 40 VBG HCO3 21 VBG O2 Saturation 64.0 VBG Base Excess -2.9 Sodium 133 L Potassium 4.5 Chloride 95 L Carbon Dioxide 26 Anion Gap 17 BUN 63 H Creatinine 2.04 H Estim Creat Clear Calc 44.4 Estimated GFR 32 POC Glucose 480 H* Random Glucose 452 H* Calcium 10.3 H D Ferritin Total Bilirubin AST ALT Alkaline Phosphatase Lactate Dehydrogenase C-Reactive Protein Total Protein Albumin Procalcitonin Acetone, Qual Negative 09/12/20 09/13/20 09/13/20 19:50 06:04 06:04 WBC 10.1 RBC 4.77 Hgb 15.0 Hct 44.0 MCV 92.2 MCH 31.4 MCHC 34.1 RDW 13.2 Plt Count 148 L MPV 11.4 Immature Gran % (Auto) 0.8 H Neut % (Auto) 84.4 H Lymph % (Auto) 9.9 L Nolan % (Auto) 4.8 Eos % (Auto) 0.0 Baso % (Auto) 0.1 Lymph # (Auto) 1.0 L Nolan # (Auto) 0.5 Eos # (Auto) 0.0 Baso # (Auto) 0.0 Abs Immat Gran (auto) 0.08 H Absolute Neuts (auto) 8.5 H Absolute Nucleated RBC 0.000 Nucleated RBC % (auto) 0.0 Smear Tech's Comments VERIFIED PT INR D-Dimer 2933 VBG pH VBG pCO2 VBG pO2 VBG HCO3 VBG O2 Saturation VBG Base Excess Sodium Potassium Chloride Carbon Dioxide Anion Gap BUN Creatinine Estim Creat Clear Calc Estimated GFR POC Glucose 244 H Random Glucose Calcium Ferritin Total Bilirubin AST ALT Alkaline Phosphatase Lactate Dehydrogenase C-Reactive Protein Total Protein Albumin Procalcitonin Acetone, Qual 09/13/20 09/13/20 09/13/20 06:04 06:04 06:04 WBC RBC Hgb Hct MCV MCH MCHC RDW Plt Count MPV Immature Gran % (Auto) Neut % (Auto) Lymph % (Auto) Nolan % (Auto) Eos % (Auto) Baso % (Auto) Lymph # (Auto) Nolan # (Auto) Eos # (Auto) Baso # (Auto) Abs Immat Gran (auto) Absolute Neuts (auto) Absolute Nucleated RBC Nucleated RBC % (auto) Smear Tech's Comments PT 24.4 H D INR 2.0 H D-Dimer VBG pH VBG pCO2 VBG pO2 VBG HCO3 VBG O2 Saturation VBG Base Excess Sodium 135 Potassium 4.5 Chloride 97 Carbon Dioxide 29 Anion Gap 14 BUN 64 H Creatinine 1.62 H Estim Creat Clear Calc 55.9 Estimated GFR 42 POC Glucose Random Glucose 287 H D Calcium 10.1 Ferritin 640 H Total Bilirubin 0.9 AST 43 H ALT 48 H Alkaline Phosphatase 61 Lactate Dehydrogenase 148 C-Reactive Protein 2.12 H Total Protein 6.1 L Albumin 3.2 L Procalcitonin 0.10 Acetone, Qual 09/13/20 09/13/20 07:42 11:06 WBC RBC Hgb Hct MCV MCH MCHC RDW Plt Count MPV Immature Gran % (Auto) Neut % (Auto) Lymph % (Auto) Nolan % (Auto) Eos % (Auto) Baso % (Auto) Lymph # (Auto) Nolan # (Auto) Eos # (Auto) Baso # (Auto) Abs Immat Gran (auto) Absolute Neuts (auto) Absolute Nucleated RBC Nucleated RBC % (auto) Smear Tech's Comments PT INR D-Dimer VBG pH VBG pCO2 VBG pO2 VBG HCO3 VBG O2 Saturation VBG Base Excess Sodium Potassium Chloride Carbon Dioxide Anion Gap BUN Creatinine Estim Creat Clear Calc Estimated GFR POC Glucose 273 H 325 H Random Glucose Calcium Ferritin Total Bilirubin AST ALT Alkaline Phosphatase Lactate Dehydrogenase C-Reactive Protein Total Protein Albumin Procalcitonin Acetone, Qual Microbiology Microbiology Results: Microbiology 09/11/20 10:49 Blood - Venous Blood Culture - Preliminary No growth after 48 hours. 09/11/20 10:52 Blood - Venous Blood Culture - Preliminary No growth after 24 hours. Assessment and Plan (1) Acute respiratory failure with hypoxia: Status: Acute (2) Pneumonia due to COVID-19 virus: Status: Acute Assessment and Plan: hospital d#3 70yo M with HTN, DM2, hx of CVA, PFO s/p occlusion and anticoagulated with warfarin, ROBERTO not on CPAP, CKD3, gout, venous insufficiency sent in from [facility] [place] Coumad[facility] with hypoxia, SaO2 81-86% on RA COVID-19 positive; symptoms for 10d prior to admission sinus pause up to 4.7sec # sinus pause - d/c metoprolol. consult Cardiology. may requre ILR upon discharge. # COVID-19 pneumonia - dexamethasone d#10/08. remdesivir d#09/05. ID following. inflammatory markers mostly improving. # acute hypoxic respiratory failure - supplemental O2, wean as tolerated, encourage awake proning # viral sepsis - due to COVID-19; doubt bacterial superinfection # lactic acidosis - resolved # HTN - continue valsartan, d/c metoprolol # CKD3 - SCr stable/improved, avoid nephrotoxins # PFO closure- ?anticoagulated with warfarin - continue warfarin 5 mg/d, INR therapeutic. no know hx of AF- reason for warfarin anticoagulation is not entirely clear at this point # DM2, A1c 8.1, with steroid-induced hyperglycemia - basal/bolus insulin [on Trulicity as outpt]- increased doses and got 10u of IV insulin overnight # gout - continue allopurinol # VTE ppx - warfarin I updated the pt's sister Larissa by phone @ [phone]
--- NOTE | 2020-09-13 13:14 | P.CONCA_ITS ---
History of Present Illness History of Present Illness Date of Service: 09/13/20 Requesting physician: Judi Morgan Consult reason: other (Sinus pause) Chief complaint: COVID 19 Pneumonia Narrative: We are asked to see Parmjit in cardiology consultation today for noted sinus pause status afternoon. Patient was usual state of health was resting and noted to have sinus pause. When nurse asked him he said he was little lightheaded. Symptoms resolve quickly. Sinus pause also followed by junctional escape. During this hospitalization he has had some sinus pauses. If no symptoms reported during that time. Patient does not have any history of prior syncope. Unsure as to prior cardiac arrhythmias such as atrial fibrillation. Remains on warfarin therapy. He says about 22 years ago he had open-heart surgery to close his PFO/ASD at [facility]. He does not recall exact reason but says that he was short of breath at that time. No follow-up recently. Remains on warfarin therapy for unclear reasons at this time. Try to reach the sister. Admitted to the hospital with acute respiratory failure suspected to be due to pneumonia due to COVID. Medicines at home include metoprolol and valsartan. Since the pauses metoprolol is discontinued currently. Review of Systems Constitutional: Constitutional: Reports no additional constitutional complaints Cardiovascular: Cardiovascular: Denies chest pain, Reports lightheadedness, Denies palpitations and Reports dyspnea Respiratory: Respiratory: Reports dyspnea Gastrointestinal: Gastrointestinal: Reports no additional gastrointestinal complaints Neurologic: Reports system reviewed and no additional complaints, except as documented Psychiatric: Psychiatric: Reports no additional psychiatric complaints Endocrine: Endocrine: Reports no additional endocrine complaints and Denies palpitations PMFSH Past Medical History Medical History MAXIMILIAN (acute kidney injury) B12 deficiency CKD (chronic kidney disease) stage 3, GFR 30-59 ml/min CVA (cerebral vascular accident) Diabetes Diverticulitis Gout HTN (hypertension) ROBERTO (obstructive sleep apnea) Venous insufficiency Functional capacity: independent ambulation Family History Family History Mother No problems noted. Father No problems noted. Family history: reviewed and not pertinent Surgical History Surgical History S/P patent foramen ovale closure Social History Social History Household Members: None Housing: House Do you presently have visiting nurse or other home services: No Alcohol intake: current Alcohol intake frequency: holidays/special occasions only Smoking Status: Former smoker Smoked in Last 30 Days: No Use of substances other than those prescribed or required for medical reasons: No Currently Displaying Signs/Symptoms of Drug Intoxication Withdrawal: No Have you been hit, kicked, punched, or otherwise hurt by someone within the past year? If so, by whom?: No Do you feel safe in your current relationship?: No Current Relationship Is there a partner from a previous relationship who is making you feel unsafe now?: No Are you made to feel afraid or neglected: No Advance Directives: No Advance Directives Information Provided: No Do you have thoughts of harming others: None Do you have a plan to hurt others: No Plan Recently lost weight without trying: No Meds Allergies Allergy/AdvReac Type Severity Reaction Status Date / Time oxycodone [From PERCOCET] Allergy Unknown FEEL LIKE Unverified 04/17/20 16:28 I AM FLOATING Active Medications: Current Medications Generic Name Dose Route Start Last Admin Trade Name Freq PRN Reason Stop Dose Admin Acetaminophen 650 mg 09/11/20 15:03 Acetaminophen 325 Mg Tablet PO Q6H PRN Pain, Mild (Pain Scale 1-3) Albuterol Sulfate 2 puff 09/11/20 15:03 Albuterol Sulfate 90 Mcg 8 Gm Inhaler INHALE RQ4H PRN Shortness of Breath Allopurinol 100 mg 09/12/20 09:00 09/13/20 08:21 Allopurinol 100 Mg Tablet PO 100 mg DAILY MAHESH Administration Cyanocobalamin 1,000 mcg 09/12/20 09:00 09/13/20 08:21 Cyanocobalamin (Vitamin B-12) 1,000 Mcg Tablet PO 1,000 mcg DAILY MAHESH Administration Dexamethasone Sodium Phosphate 6 mg 09/12/20 09:00 09/13/20 08:44 Dexamethasone Sod Phosphate/Pf 10 Mg/Ml Vial IVPUSH 6 mg DAILY MAHESH Administration Docusate Sodium 100 mg 09/11/20 15:03 Docusate Sodium 100 Mg Capsule PO DAILY PRN Constipation Ferrous Sulfate 324 mg 09/12/20 09:00 09/13/20 08:21 Ferrous Sulfate 324 Mg Tablet. PO 324 mg DAILY [facility] Administration Remdesivir 100 mg/ Sodium 230 mls @ 115 mls/hr 09/13/20 20:00 Chloride IV 09/16/20 21:59 Q24H [facility] Insulin Glargine 30 unit 09/13/20 09:00 09/13/20 08:20 Insulin Glargine,Hum.Rec.Anlog 100 Unit/Ml 10 Ml Vial SUBCUT 30 unit DAILY [facility] Administration Insulin Human Lispro 0 unit 09/11/20 16:30 09/13/20 12:40 Insulin Lispro 100 Unit/Ml 3 Ml Vial SUBCUT 12 unit QIDACHS [facility] Administration Protocol Omeprazole 20 mg 09/12/20 06:30 09/13/20 05:52 Omeprazole 20 Mg Capsule. PO 20 mg DAILY@0630 [facility] Administration Ondansetron HCl 4 mg 09/11/20 15:03 Ondansetron Hcl 4 Mg/2 Ml Vial IVPUSH Q8H PRN Nausea and Vomiting Pharmacy Consult 1 each 09/11/20 12:12 Consult Rx Perform Med Rec MISCELLANE ONCE PRN Consult order Pyridoxine HCl 100 mg 09/12/20 09:00 09/13/20 08:21 Pyridoxine Hcl (Vitamin B6) 50 Mg Tablet PO 100 mg DAILY [facility] Administration Sodium Chloride 3 ml 09/11/20 16:00 09/13/20 08:21 0.9 % Sodium Chloride Flush 3 Ml Syringe IVFLUSH 3 ml QSHIFT [facility] Administration Valsartan 160 mg 09/12/20 09:00 09/13/20 08:21 Valsartan 160 Mg Tablet PO 160 mg DAILY [facility] Administration Protocol Warfarin Sodium 5 mg 09/11/20 16:00 09/12/20 17:17 Warfarin Sodium 5 Mg Tablet PO 5 mg DAILY@1600 [facility] Administration Home Medications Medication Instructions Recorded Confirmed Last Taken Type blood sugar diagnostic #10 ea 08/19/20 Unknown History dulaglutide 1.5 mg/0.5 mL 1.5 mg SUBCUT QWEEK 08/19/20 09/11/20 Unknown History subcutaneous pen injector metoprolol tartrate 25 mg tablet 25 mg PO BID 08/19/20 09/11/20 Unknown History omeprazole 20 mg capsule,delayed 20 mg PO DAILY 08/19/20 09/11/20 Unknown History release valsartan 160 mg tablet 160 mg PO DAILY 08/19/20 09/11/20 Unknown History warfarin 2.5 mg tablet 5 mg PO DAILY@1600 08/19/20 09/11/20 Unknown History allopurinol 1 tab PO DAILY 09/11/20 09/11/20 Unknown History cyanocobalamin (vitamin B-12) 1 tab PO DAILY 09/11/20 09/11/20 Unknown History ferrous sulfate 1 tab PO DAILY 09/11/20 09/11/20 Unknown History Physical Exam Vital Signs: Vital Signs: Last Vital Signs Temp 97.0 F 09/13/20 12:00 Pulse 52 09/13/20 12:00 Resp 22 H 09/13/20 12:00 BP 113/59 L 09/13/20 12:00 Pulse Ox 94 09/13/20 12:00 Body Mass Index 35.9 Const: General: cooperative, comfortable and no acute distress HENMT: Head: Yes normocephalic and Yes atraumatic Neck: Neck: Yes no meningeal signs, Yes trachea midline and Yes no JVD Chest: Chest palpation & inspection: normal inspection of the chest and other (Well-healed sternotomy scar) Resp: Effort & Inspection: normal respiratory effort Auscultation: diminished lung sounds Cardio: Jugular venous distension: no JVD Rate: regular rate Rhythm: regular rhythm Heart sounds: S1 normal heart sound present and S2 normal heart sound present Neuro: General: no meningeal signs and no focal motor deficits Extrem: General: Yes no clubbing, cyanosis or edema Results Labs and Meds Result diagrams: 09/13/20 06:04 09/13/20 06:04 Lab results: Laboratory Results - last 24 hr 09/12/20 09/12/20 09/12/20 15:31 18:51 18:51 WBC RBC Hgb Hct MCV MCH MCHC RDW Plt Count MPV Immature Gran % (Auto) Neut % (Auto) Lymph % (Auto) Valley % (Auto) Eos % (Auto) Baso % (Auto) Lymph # (Auto) [place] # (Auto) Eos # (Auto) Baso # (Auto) Abs Immat Gran (auto) Absolute Neuts (auto) Absolute Nucleated RBC Nucleated RBC % (auto) Smear Tech's Comments PT INR D-Dimer VBG pH 7.37 VBG pCO2 36 VBG pO2 40 VBG HCO3 21 VBG O2 Saturation 64.0 VBG Base Excess -2.9 Sodium 133 L Potassium 4.5 Chloride 95 L Carbon Dioxide 26 Anion Gap 17 BUN 63 H Creatinine 2.04 H Estim Creat Clear Calc 44.4 Estimated GFR 32 POC Glucose 480 H* Random Glucose 452 H* Calcium 10.3 H D Ferritin Total Bilirubin AST ALT Alkaline Phosphatase Lactate Dehydrogenase C-Reactive Protein Total Protein Albumin Procalcitonin Acetone, Qual Negative 09/12/20 09/13/20 09/13/20 19:50 06:04 06:04 WBC 10.1 RBC 4.77 Hgb 15.0 Hct 44.0 MCV 92.2 MCH 31.4 MCHC 34.1 RDW 13.2 Plt Count 148 L MPV 11.4 Immature Gran % (Auto) 0.8 H Neut % (Auto) 84.4 H Lymph % (Auto) 9.9 L Valley % (Auto) 4.8 Eos % (Auto) 0.0 Baso % (Auto) 0.1 Lymph # (Auto) 1.0 L [place] # (Auto) 0.5 Eos # (Auto) 0.0 Baso # (Auto) 0.0 Abs Immat Gran (auto) 0.08 H Absolute Neuts (auto) 8.5 H Absolute Nucleated RBC 0.000 Nucleated RBC % (auto) 0.0 Smear Tech's Comments VERIFIED PT INR D-Dimer 2933 VBG pH VBG pCO2 VBG pO2 VBG HCO3 VBG O2 Saturation VBG Base Excess Sodium Potassium Chloride Carbon Dioxide Anion Gap BUN Creatinine Estim Creat Clear Calc Estimated GFR POC Glucose 244 H Random Glucose Calcium Ferritin Total Bilirubin AST ALT Alkaline Phosphatase Lactate Dehydrogenase C-Reactive Protein Total Protein Albumin Procalcitonin Acetone, Qual 09/13/20 09/13/20 09/13/20 06:04 06:04 06:04 WBC RBC Hgb Hct MCV MCH MCHC RDW Plt Count MPV Immature Gran % (Auto) Neut % (Auto) Lymph % (Auto) Valley % (Auto) Eos % (Auto) Baso % (Auto) Lymph # (Auto) [place] # (Auto) Eos # (Auto) Baso # (Auto) Abs Immat Gran (auto) Absolute Neuts (auto) Absolute Nucleated RBC Nucleated RBC % (auto) Smear Tech's Comments PT 24.4 H D INR 2.0 H D-Dimer VBG pH VBG pCO2 VBG pO2 VBG HCO3 VBG O2 Saturation VBG Base Excess Sodium 135 Potassium 4.5 Chloride 97 Carbon Dioxide 29 Anion Gap 14 BUN 64 H Creatinine 1.62 H Estim Creat Clear Calc 55.9 Estimated GFR 42 POC Glucose Random Glucose 287 H D Calcium 10.1 Ferritin 640 H Total Bilirubin 0.9 AST 43 H ALT 48 H Alkaline Phosphatase 61 Lactate Dehydrogenase 148 C-Reactive Protein 2.12 H Total Protein 6.1 L Albumin 3.2 L Procalcitonin 0.10 Acetone, Qual 09/13/20 09/13/20 07:42 11:06 WBC RBC Hgb Hct MCV MCH MCHC RDW Plt Count MPV Immature Gran % (Auto) Neut % (Auto) Lymph % (Auto) Valley % (Auto) Eos % (Auto) Baso % (Auto) Lymph # (Auto) [place] # (Auto) Eos # (Auto) Baso # (Auto) Abs Immat Gran (auto) Absolute Neuts (auto) Absolute Nucleated RBC Nucleated RBC % (auto) Smear Tech's Comments PT INR D-Dimer VBG pH VBG pCO2 VBG pO2 VBG HCO3 VBG O2 Saturation VBG Base Excess Sodium Potassium Chloride Carbon Dioxide Anion Gap BUN Creatinine Estim Creat Clear Calc Estimated GFR POC Glucose 273 H 325 H Random Glucose Calcium Ferritin Total Bilirubin AST ALT Alkaline Phosphatase Lactate Dehydrogenase C-Reactive Protein Total Protein Albumin Procalcitonin Acetone, Qual EKG reviewed by me on admission showed bifascicular block with sinus tachycardia Assessment and Plan (1) Sinus pause: Status: Acute Sudden-onset sinus pause while patient was awake unlikely to be room related to sleep apnea. Could be secondary to metoprolol therapy on top of sino atrial delores dysfunction. Agree with discontinuation of metoprolol therapy at this point time. Does not require acute pacing therapy but high likelihood given his prior atrial surgery that he could be developing sinoatrial delores dysfunction. Avoid all rate lowering medications. Continue full disclosure cardiac monitoring. If he continues to have sinus pauses will require pacing therapy. This was discussed with him he understands agrees. His need for warfarin therapy is unclear. Try to reach the sister to get more information as patient is not completely reliable historian. For now continue warfarin therapy with target INR between 2 and 3.
[2020-09-13] MEDS: Warfarin Sodium 5 MG TABLET PO (15:09)
[2020-09-13 15:55] VITALS: BP 109/55; PULSE 58; RESP 18; TEMP 36.3; O2SAT 93
[2020-09-13 16:09] LABS: Glucose, Whole Blood 427 mg/dL (60-115)
[2020-09-13 19:26] VITALS: BP 117/56; PULSE 58; RESP 18; TEMP 36.6; O2SAT 95
[2020-09-13] MEDS: Remdesivir 100 MG in 0.9 % Sodium Chloride 230 ML 115 MG IV (19:41)
[2020-09-13 20:07] LABS: Glucose, Whole Blood 333 mg/dL (60-115)
[2020-09-14] VITALS (7 sets, daily range): BP systolic 117–148; BP diastolic 58–72; PULSE 49–96; RESP 18–20; TEMP 36.1–36.9; O2SAT 94–98
[2020-09-14] MEDS: 0.9 % Sodium Chloride Flush 3 ML SYRINGE IVFLUSH ×3 (00:34→15:56)
[2020-09-14] MEDS: Omeprazole 20 MG CAPSULE.DR PO (06:49)
[2020-09-14 06:58] LABS: Hemoglobin 13.5 g/dl (14.0-18.0); MANUAL DIFF FLAG SCAN; Monocytes Absolute Auto 0.6 X10*3/uL (0.1-1.2); PLT CLUMP 1; SCAN SMEAR FLAG 1
[2020-09-14 07:01] LABS: Eosinophils Percent Auto 0.1 % (0-4); Hematocrit 40.5 % (42-52); Imm Gran Abs Auto 0.06 X10*3/uL (0.00-0.03); Imm Gran Pct Auto 0.7 % (0.0-0.4); Lymphocytes Percent Auto 11.4 % (20-40); Mean Corpuscular HGB Conc 33.3 g/dl (31.0-36.0); Mean Corpuscular Hemoglobin 30.6 pg (27.0-33.0); Mean Corpuscular Volume 91.8 fL (80-98); Mean Platelet Volume 10.7 fL (9.4-12.4); Monocytes Percent Auto 6.3 % (2-11); Neutrophils Absolute Auto 7.2 X10*3/uL (2.0-8.3); Neutrophils Percent Auto 81.5 % (45-73); Platelet Count 121 X10*3/uL (160-400); Red Blood Count 4.41 X10*6/uL (4.60-5.80); White Blood Count 8.8 X10*3/uL (4.8-10.8)
[2020-09-14 07:09] LABS: INTERNATIONAL NORM RATIO 2.7 (0.9-1.1); Prothrombin Time 32.7 SEC (10.8-13.0)
[2020-09-14 07:28] LABS: Glucose, Whole Blood 272 mg/dL (60-115)
[2020-09-14 07:29] LABS: Alanine Aminotransferase 46 U/L (0-40); Albumin Level 2.9 g/dL (3.5-5.0); Alkaline Phosphatase 55 U/L (39-117); Anion Gap 11 (12-20); Aspartate Amino Transferase 34 U/L (5-37); Bilirubin Total 0.5 mg/dL (0.0-1.0); Blood Urea Nitrogen 65 mg/dL (9-16); Calcium 9.7 mg/dL (8.4-10.2); Carbon Dioxide 28 mmol/L (22-29); Chloride 102 mmol/L (96-108); Creatinine Clr Calc Pharmacy 59.2; Estimated Glomerular Filt Rate 45; Glucose Random 291 mg/dL (60-115); Potassium 4.6 mmol/L (3.3-5.1); Sodium 136 mmol/L (135-145); Total Protein 5.6 g/dL (6.5-8.0)
[2020-09-14] MEDS: Pyridoxine HCl (Vitamin B6) 50 MG TABLET 100 MG PO (08:18)
[2020-09-14] MEDS: Insulin Lispro 100 UNIT/ML 3 ML VIAL SUBCUT ×4 (08:19→20:27)
[2020-09-14] MEDS: Insulin Glargine,Hum.rec.anlog 100 UNIT/ML 10 ML VIAL 30 UNIT SUBCUT (08:19)
[2020-09-14] MEDS: allopurinoL 100 MG TABLET PO (08:19)
[2020-09-14] MEDS: Ferrous Sulfate 324 MG TABLET.DR PO (08:19)
[2020-09-14] MEDS: Valsartan 160 MG TABLET PO (08:20)
[2020-09-14] MEDS: Cyanocobalamin (Vitamin B-12) 1,000 MCG TABLET 1000 MCG PO (08:20)
--- NOTE | 2020-09-14 11:10 | PM.PNCARD ---
Subjective Subjective Date of Service: 09/14/20 Principal diagnosis: Sinus pause, bifascicular block Interval history: Patient had the 3.2nd pause last evening. Mild pauses less than 3 seconds in this morning. Remains with sinus bradycardia. Has intermittent bundle-branch block with [place] conduction. No lightheadedness, syncope. Hemodynamically stable. Review of Systems Review of Systems Yes all other systems are reviewed and are negative Physical Exam Vital Signs: Last Vital Signs Temp 98.4 F 09/14/20 04:00 Pulse 50 09/14/20 08:00 Resp 18 09/14/20 08:00 BP 117/59 L 09/14/20 08:00 Pulse Ox 98 09/14/20 08:00 Body Mass Index 35.9 Const General: cooperative, comfortable and no acute distress Nutritional Appearance: obese Orientation/consciousness: patient oriented x3 Neck Neck: Yes trachea midline, Yes supple and Yes no JVD Cardio Palpation: normal PMI Rate: regular rate Rhythm: regular rhythm Heart sounds: S1 normal heart sound present and S2 normal heart sound present Neuro General: patient oriented x3 and no focal motor deficits Results Labs and Meds Result diagrams: 09/14/20 06:39 09/14/20 06:39 Lab results: Laboratory Results - last 24 hr 09/13/20 09/13/20 09/13/20 11:06 16:00 19:30 WBC RBC Hgb Hct MCV MCH MCHC RDW Plt Count MPV Immature Gran % (Auto) Neut % (Auto) Lymph % (Auto) [place] % (Auto) Eos % (Auto) Baso % (Auto) Lymph # (Auto) [place] # (Auto) Eos # (Auto) Baso # (Auto) Abs Immat Gran (auto) Absolute Neuts (auto) Absolute Nucleated RBC Nucleated RBC % (auto) Smear Tech's Comments PT INR Sodium Potassium Chloride Carbon Dioxide Anion Gap BUN Creatinine Estim Creat Clear Calc Estimated GFR POC Glucose 325 H 427 H* 333 H Random Glucose Calcium Total Bilirubin AST ALT Alkaline Phosphatase Total Protein Albumin 09/14/20 09/14/20 09/14/20 06:39 06:39 06:39 WBC 8.8 RBC 4.41 L Hgb 13.5 L Hct 40.5 L MCV 91.8 MCH 30.6 MCHC 33.3 RDW 13.0 Plt Count 121 L MPV 10.7 Immature Gran % (Auto) 0.7 H Neut % (Auto) 81.5 H Lymph % (Auto) 11.4 L [place] % (Auto) 6.3 Eos % (Auto) 0.1 Baso % (Auto) 0.0 Lymph # (Auto) 1.0 L [place] # (Auto) 0.6 Eos # (Auto) 0.0 Baso # (Auto) 0.0 Abs Immat Gran (auto) 0.06 H Absolute Neuts (auto) 7.2 Absolute Nucleated RBC 0.000 Nucleated RBC % (auto) 0.0 Smear Tech's Comments Not Reportable PT 32.7 H D INR 2.7 H Sodium 136 Potassium 4.6 Chloride 102 Carbon Dioxide 28 Anion Gap 11 L BUN 65 H Creatinine 1.53 H Estim Creat Clear Calc 59.2 Estimated GFR 45 POC Glucose Random Glucose 291 H Calcium 9.7 Total Bilirubin 0.5 AST 34 ALT 46 H Alkaline Phosphatase 55 Total Protein 5.6 L Albumin 2.9 L 09/14/20 07:15 WBC RBC Hgb Hct MCV MCH MCHC RDW Plt Count MPV Immature Gran % (Auto) Neut % (Auto) Lymph % (Auto) [place] % (Auto) Eos % (Auto) Baso % (Auto) Lymph # (Auto) [place] # (Auto) Eos # (Auto) Baso # (Auto) Abs Immat Gran (auto) Absolute Neuts (auto) Absolute Nucleated RBC Nucleated RBC % (auto) Smear Tech's Comments PT INR Sodium Potassium Chloride Carbon Dioxide Anion Gap BUN Creatinine Estim Creat Clear Calc Estimated GFR POC Glucose 272 H Random Glucose Calcium Total Bilirubin AST ALT Alkaline Phosphatase Total Protein Albumin Progress Note: A&P Assessment and plan (1) Sinus pause: Status: Acute Assessment and Plan: Sinus pause suggestive sinoatrial delores dysfunction. Exacerbated by metoprolol therapy. Watch for another 24 hours. Keep him NPO past midnight. If he develops any significant pause overnight despite off metoprolol for 36 hours consider dual-chamber pacemaker. If he does not have any significant pauses, continue to avoid rate lowering medications and will consider implantable loop recorder. Likelihood of underlying sick sinus syndrome is high given his prior atrial pathology. (2) Bifascicular block: Status: Acute Assessment and Plan: Intermittent bifascicular block without any evidence of advanced AV block. No interventions required for the same. Will continue to monitor the patient. Avoid rate lowering medications. Will follow with the patient. Fall Risk Details Current Medications: Current Medications Generic Name Dose Route Start Last Admin Trade Name Freq PRN Reason Stop Dose Admin Acetaminophen 650 mg 09/11/20 15:03 Acetaminophen 325 Mg Tablet PO Q6H PRN Pain, Mild (Pain Scale 1-3) Albuterol Sulfate 2 puff 09/11/20 15:03 Albuterol Sulfate 90 Mcg 8 Gm Inhaler INHALE RQ4H PRN Shortness of Breath Allopurinol 100 mg 09/12/20 09:00 09/14/20 08:19 Allopurinol 100 Mg Tablet PO 100 mg DAILY MAHESH Administration Cyanocobalamin 1,000 mcg 09/12/20 09:00 09/14/20 08:20 Cyanocobalamin (Vitamin B-12) 1,000 Mcg Tablet PO 1,000 mcg DAILY MAHESH Administration Dexamethasone Sodium Phosphate 6 mg 09/12/20 09:00 09/14/20 08:19 Dexamethasone Sod Phosphate/Pf 10 Mg/Ml Vial IVPUSH 6 mg DAILY MAHESH Administration Docusate Sodium 100 mg 09/11/20 15:03 Docusate Sodium 100 Mg Capsule PO DAILY PRN Constipation Ferrous Sulfate 324 mg 09/12/20 09:00 09/14/20 08:19 Ferrous Sulfate 324 Mg Tablet. PO 324 mg DAILY MAHESH Administration Remdesivir 100 mg/ Sodium 230 mls @ 115 mls/hr 09/13/20 20:00 09/13/20 22:11 Chloride IV 09/16/20 21:59 Infused Q24H [facility] Infusion Insulin Glargine 30 unit 09/13/20 09:00 09/14/20 08:19 Insulin Glargine,Hum.Rec.Anlog 100 Unit/Ml 10 Ml Vial SUBCUT 30 unit DAILY MAHESH Administration Insulin Human Lispro 0 unit 09/11/20 16:30 09/14/20 08:19 Insulin Lispro 100 Unit/Ml 3 Ml Vial SUBCUT 9 unit QIDACHS [facility] Administration Protocol Omeprazole 20 mg 09/12/20 06:30 09/14/20 06:49 Omeprazole 20 Mg Capsule. PO 20 mg DAILY@0630 MAHESH Administration Ondansetron HCl 4 mg 09/11/20 15:03 Ondansetron Hcl 4 Mg/2 Ml Vial IVPUSH Q8H PRN Nausea and Vomiting Pharmacy Consult 1 each 09/11/20 12:12 Consult Rx Perform Med Rec MISCELLANE ONCE PRN Consult order Pyridoxine HCl 100 mg 09/12/20 09:00 09/14/20 08:18 Pyridoxine Hcl (Vitamin B6) 50 Mg Tablet PO 100 mg DAILY [facility]ESH Administration Sodium Chloride 3 ml 09/11/20 16:00 09/14/20 08:20 0.9 % Sodium Chloride Flush 3 Ml Syringe IVFLUSH 3 ml QSHIFT MAHESH Administration Valsartan 160 mg 09/12/20 09:00 09/14/20 08:20 Valsartan 160 Mg Tablet PO 160 mg DAILY MAHESH Administration Protocol Warfarin Sodium 5 mg 09/11/20 16:00 09/13/20 15:09 Warfarin Sodium 5 Mg Tablet PO 5 mg DAILY@1600 MAHESH Administration Time Spent With Patient Time: Total time spent is greater than 50% in coordination of care (as documented) at patient's floor/unit and/or counseling patient: Time with patient: 25 - 35 minutes
[2020-09-14 12:01] LABS: Glucose, Whole Blood 325 mg/dL (60-115)
--- NOTE | 2020-09-14 12:20 | HO.PM.IMPN ---
Subjective Subjective Date of Service: 09/14/20 Interval History: O2 requirement down to 2L sinus pauses up to 3.3sec yesterday night, 2 sec this am states he feels slightly better no lighteadedness Physical Exam Vital Signs: Vital Signs: Last Vital Signs Temp 97.7 F 09/14/20 12:00 Pulse 72 09/14/20 12:00 Resp 18 09/14/20 12:00 BP 118/72 09/14/20 12:00 Pulse Ox 97 09/14/20 12:00 Body Mass Index 35.9 Gen: in no acute distress HEENT: sclera anicteric, moist mucus membranes Neck: supple Lungs: no respiratory distress, auscultation deferred due to COVID-19 Heart: normal peripheral pulses Abd: soft, non-tender, non-distended Ext: no cyanosis, clubbing, or edema Skin: warm/well-perfused Neuro: alert and oriented x3, no focal findings Psych: appropriate affect Objective Data Current Medications Generic Name Dose Route Start Last Admin Trade Name Virgilq PRN Reason Stop Dose Admin Acetaminophen 650 mg 09/11/20 15:03 Acetaminophen 325 Mg Tablet PO Q6H PRN Pain, Mild (Pain Scale 1-3) Albuterol Sulfate 2 puff 09/11/20 15:03 Albuterol Sulfate 90 Mcg 8 Gm Inhaler INHALE RQ4H PRN Shortness of Breath Allopurinol 100 mg 09/12/20 09:00 09/14/20 08:19 Allopurinol 100 Mg Tablet PO 100 mg DAILY MAHESH Administration Cyanocobalamin 1,000 mcg 09/12/20 09:00 09/14/20 08:20 Cyanocobalamin (Vitamin B-12) 1,000 Mcg Tablet PO 1,000 mcg DAILY MAHESH Administration Dexamethasone Sodium Phosphate 6 mg 09/12/20 09:00 09/14/20 08:19 Dexamethasone Sod Phosphate/Pf 10 Mg/Ml Vial IVPUSH 6 mg DAILY MAHESH Administration Docusate Sodium 100 mg 09/11/20 15:03 Docusate Sodium 100 Mg Capsule PO DAILY PRN Constipation Ferrous Sulfate 324 mg 09/12/20 09:00 09/14/20 08:19 Ferrous Sulfate 324 Mg Tablet.Dr PO 324 mg DAILY MAHESH Administration Remdesivir 100 mg/ Sodium 230 mls @ 115 mls/hr 09/13/20 20:00 09/13/20 22:11 Chloride IV 09/16/20 21:59 Infused Q24H [facility] Infusion Insulin Glargine 30 unit 09/13/20 09:00 09/14/20 08:19 Insulin Glargine,Hum.Rec.Anlog 100 Unit/Ml 10 Ml Vial SUBCUT 30 unit DAILY [facility] Administration Insulin Human Lispro 0 unit 09/11/20 16:30 09/14/20 08:19 Insulin Lispro 100 Unit/Ml 3 Ml Vial SUBCUT 9 unit QIDACHS [facility] Administration Protocol Omeprazole 20 mg 09/12/20 06:30 09/14/20 06:49 Omeprazole 20 Mg Capsule. PO 20 mg DAILY@0630 [facility] Administration Ondansetron HCl 4 mg 09/11/20 15:03 Ondansetron Hcl 4 Mg/2 Ml Vial IVPUSH Q8H PRN Nausea and Vomiting Pharmacy Consult 1 each 09/11/20 12:12 Consult Rx Perform Med Rec MISCELLANE ONCE PRN Consult order Pyridoxine HCl 100 mg 09/12/20 09:00 09/14/20 08:18 Pyridoxine Hcl (Vitamin B6) 50 Mg Tablet PO 100 mg DAILY [facility] Administration Sodium Chloride 3 ml 09/11/20 16:00 09/14/20 08:20 0.9 % Sodium Chloride Flush 3 Ml Syringe IVFLUSH 3 ml QSHIFT [facility] Administration Valsartan 160 mg 09/12/20 09:00 09/14/20 08:20 Valsartan 160 Mg Tablet PO 160 mg DAILY [facility] Administration Protocol Warfarin Sodium 2.5 mg 09/14/20 18:00 Warfarin Sodium 2.5 Mg Tablet PO DAILY@1800 [facility] Labs CBC & Chem 7: 09/14/20 06:39 09/14/20 06:39 Labs: Laboratory Results - last 24 hr 09/13/20 09/13/20 09/14/20 16:00 19:30 06:39 WBC RBC Hgb Hct MCV MCH MCHC RDW Plt Count MPV Immature Gran % (Auto) Neut % (Auto) Lymph % (Auto) [place] % (Auto) Eos % (Auto) Baso % (Auto) Lymph # (Auto) [place] # (Auto) Eos # (Auto) Baso # (Auto) Abs Immat Gran (auto) Absolute Neuts (auto) Absolute Nucleated RBC Nucleated RBC % (auto) Smear Tech's Comments PT 32.7 H D INR 2.7 H Sodium Potassium Chloride Carbon Dioxide Anion Gap BUN Creatinine Estim Creat Clear Calc Estimated GFR POC Glucose 427 H* 333 H Random Glucose Calcium Total Bilirubin AST ALT Alkaline Phosphatase Total Protein Albumin 09/14/20 09/14/20 09/14/20 06:39 06:39 07:15 WBC 8.8 RBC 4.41 L Hgb 13.5 L Hct 40.5 L MCV 91.8 MCH 30.6 MCHC 33.3 RDW 13.0 Plt Count 121 L MPV 10.7 Immature Gran % (Auto) 0.7 H Neut % (Auto) 81.5 H Lymph % (Auto) 11.4 L [place] % (Auto) 6.3 Eos % (Auto) 0.1 Baso % (Auto) 0.0 Lymph # (Auto) 1.0 L [place] # (Auto) 0.6 Eos # (Auto) 0.0 Baso # (Auto) 0.0 Abs Immat Gran (auto) 0.06 H Absolute Neuts (auto) 7.2 Absolute Nucleated RBC 0.000 Nucleated RBC % (auto) 0.0 Smear Tech's Comments Not Reportable PT INR Sodium 136 Potassium 4.6 Chloride 102 Carbon Dioxide 28 Anion Gap 11 L BUN 65 H Creatinine 1.53 H Estim Creat Clear Calc 59.2 Estimated GFR 45 POC Glucose 272 H Random Glucose 291 H Calcium 9.7 Total Bilirubin 0.5 AST 34 ALT 46 H Alkaline Phosphatase 55 Total Protein 5.6 L Albumin 2.9 L 09/14/20 11:56 WBC RBC Hgb Hct MCV MCH MCHC RDW Plt Count MPV Immature Gran % (Auto) Neut % (Auto) Lymph % (Auto) [place] % (Auto) Eos % (Auto) Baso % (Auto) Lymph # (Auto) [place] # (Auto) Eos # (Auto) Baso # (Auto) Abs Immat Gran (auto) Absolute Neuts (auto) Absolute Nucleated RBC Nucleated RBC % (auto) Smear Tech's Comments PT INR Sodium Potassium Chloride Carbon Dioxide Anion Gap BUN Creatinine Estim Creat Clear Calc Estimated GFR POC Glucose 325 H Random Glucose Calcium Total Bilirubin AST ALT Alkaline Phosphatase Total Protein Albumin Microbiology Microbiology Results: Microbiology 09/11/20 10:52 Blood - Venous Blood Culture - Preliminary No growth after 48 hours. 09/11/20 10:49 Blood - Venous Blood Culture - Preliminary No growth after 48 hours. Assessment and Plan (1) Acute respiratory failure with hypoxia: Status: Acute (2) Pneumonia due to COVID-19 virus: Status: Acute Assessment and Plan: hospital d#4 70yo M with HTN, DM2, hx of CVA, PFO s/p occlusion and anticoagulated with warfarin, ROBERTO not on CPAP, CKD3, gout, venous insufficiency sent in [place] [facility] with [place], SaO2 81-86% on RA COVID-19 positive; symptoms for 10d prior to admission sinus pause up to 4.7sec on 09/13 # sinus pause - likely underlying SSS given prior atrial surgery - d/c'ed metoprolol 09/13 - if pauses recur after 36hr may need PPM so will keep NPO after midnight; otherwise will need ILR upon discharge and Cardiology f/u [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 remdesivir d#10/03. ID following. continue to monitor inflammatory markers # acute hypoxic respiratory failure - supplemental O2, wean as tolerated, encourage awake proning # viral sepsis - due to COVID-19; doubt bacterial superinfection # lactic acidosis - resolved # HTN - continue valsartan, d/c'ed metoprolol # CKD3 - SCr stable/improved, avoid nephrotoxins # PFO closure- ?anticoagulated with warfarin - INR rising quickly. will halve dose of warfarin from 5 to 2.5 mg/d. no known hx of AF- reason for warfarin anticoagulation is not entirely clear at this point # DM2, A1c 8.1, with steroid-induced hyperglycemia - basal/bolus insulin [on Trulicity as outpt]- increase Lantus # gout - continue allopurinol # VTE ppx - warfarin I updated the pt's sister Larissa by phone @ [phone]
[2020-09-14 16:08] LABS: Glucose, Whole Blood 322 mg/dL (60-115)
[2020-09-14] MEDS: Warfarin Sodium 2.5 MG TABLET PO (18:03)
[2020-09-14 20:21] LABS: Glucose, Whole Blood 295 mg/dL (60-115)
[2020-09-14] MEDS: Remdesivir 100 MG in 0.9 % Sodium Chloride 230 ML 115 MG IV (20:27)
[2020-09-15] MEDS: 0.9 % Sodium Chloride Flush 3 ML SYRINGE IVFLUSH ×4 (00:51→23:46)
[2020-09-15 02:56] VITALS: BP 162/77; PULSE 49; RESP 18; TEMP 36.6; O2SAT 97
[2020-09-15] MEDS: Acetaminophen 325 MG TABLET 650 MG PO (05:06)
[2020-09-15] MEDS: Omeprazole 20 MG CAPSULE.DR PO (05:55)
[2020-09-15 06:29] LABS: MANUAL DIFF FLAG NO
[2020-09-15 06:45] LABS: INTERNATIONAL NORM RATIO 2.5 (0.9-1.1); Prothrombin Time 29.9 SEC (10.8-13.0)
[2020-09-15 07:09] LABS: Alanine Aminotransferase 58 U/L (0-40); Alkaline Phosphatase 58 U/L (39-117); Anion Gap 11 (12-20); Aspartate Amino Transferase 41 U/L (5-37); Bilirubin Total 0.6 mg/dL (0.0-1.0); Blood Urea Nitrogen 48 mg/dL (9-16); C Reactive Protein 0.95 mg/dL (< or = 0.50); Calcium 9.5 mg/dL (8.4-10.2); Carbon Dioxide 29 mmol/L (22-29); Chloride 103 mmol/L (96-108); Creatinine Clr Calc Pharmacy 74.3; Estimated Glomerular Filt Rate 59; Glucose Random 255 mg/dL (60-115); Magnesium 2.1 mg/dL (1.6-2.6); Potassium 4.3 mmol/L (3.3-5.1); Sodium 139 mmol/L (135-145); Total Protein 5.8 g/dL (6.5-8.0)
[2020-09-15 07:47] LABS: Eosinophils Percent Auto 0.2 % (0-4); Hematocrit 39.6 % (42-52); Hemoglobin 13.4 g/dl (14.0-18.0); Imm Gran Abs Auto 0.09 X10*3/uL (0.00-0.03); Imm Gran Pct Auto 1.1 % (0.0-0.4); Lymphocytes Percent Auto 12.2 % (20-40); Mean Corpuscular HGB Conc 33.8 g/dl (31.0-36.0); Mean Corpuscular Hemoglobin 31.5 pg (27.0-33.0); Monocytes Absolute Auto 0.5 X10*3/uL (0.1-1.2); Monocytes Percent Auto 6.4 % (2-11); Neutrophils Absolute Auto 6.6 X10*3/uL (2.0-8.3); Neutrophils Percent Auto 80.1 % (45-73); Platelet Count 120 X10*3/uL (160-400); Red Blood Count 4.26 X10*6/uL (4.60-5.80); Red Cell Distribution Width 13.2 % (11.0-16.0); White Blood Count 8.2 X10*3/uL (4.8-10.8)
[2020-09-15 07:49] LABS: Glucose, Whole Blood 237 mg/dL (60-115)
[2020-09-15 07:57] VITALS: BP 156/67; PULSE 51; RESP 20; TEMP 36.4; O2SAT 98
[2020-09-15] MEDS: Insulin Glargine,Hum.rec.anlog 100 UNIT/ML 10 ML VIAL 36 UNIT SUBCUT (10:05)
[2020-09-15] MEDS: Pyridoxine HCl (Vitamin B6) 50 MG TABLET 100 MG PO (10:05)
[2020-09-15] MEDS: Ferrous Sulfate 324 MG TABLET.DR PO (10:06)
[2020-09-15] MEDS: Cyanocobalamin (Vitamin B-12) 1,000 MCG TABLET 1000 MCG PO (10:06)
[2020-09-15] MEDS: Valsartan 160 MG TABLET PO (10:06)
[2020-09-15] MEDS: allopurinoL 100 MG TABLET PO (10:06)
[2020-09-15] MEDS: Insulin Lispro 100 UNIT/ML 3 ML VIAL SUBCUT ×4 (10:07→20:06)
--- NOTE | 2020-09-15 11:04 | HO.PM.IMPN ---
Subjective Subjective Date of Service: 09/15/20 Interval History: hungry Cardiovascular Cardiovascular: Reports no additional cardiovascular complaints Gastrointestinal Gastrointestinal: Reports no additional gastrointestinal complaints Physical Exam Vital Signs: Vital Signs: Last Vital Signs Temp 97.5 F 09/15/20 07:57 Pulse 51 09/15/20 07:57 Resp 20 09/15/20 07:57 BP 156/67 H 09/15/20 07:57 Pulse Ox 98 09/15/20 07:57 Body Mass Index 35.9 General: AO X 3, no acute distress Resp: CTA bilateral CVS: S1,S2,RRR GI: soft, non tender, non distended Neuro: motor grossly intact Psych: appropriate affect Objective Data Current Medications Generic Name Dose Route Start Last Admin Trade Name Freq PRN Reason Stop Dose Admin Acetaminophen 650 mg 09/11/20 15:03 09/15/20 05:06 Acetaminophen 325 Mg Tablet PO 650 mg Q6H PRN Administration Pain, Mild (Pain Scale 1-3) Albuterol Sulfate 2 puff 09/11/20 15:03 Albuterol Sulfate 90 Mcg 8 Gm Inhaler INHALE RQ4H PRN Shortness of Breath Allopurinol 100 mg 09/12/20 09:00 09/15/20 10:06 Allopurinol 100 Mg Tablet PO 100 mg DAILY MAHESH Administration Cyanocobalamin 1,000 mcg 09/12/20 09:00 09/15/20 10:06 Cyanocobalamin (Vitamin B-12) 1,000 Mcg Tablet PO 1,000 mcg DAILY MAHESH Administration Dexamethasone Sodium Phosphate 6 mg 09/12/20 09:00 09/15/20 10:08 Dexamethasone Sod Phosphate/Pf 10 Mg/Ml Vial IVPUSH 6 mg DAILY MAHESH Administration Docusate Sodium 100 mg 09/11/20 15:03 Docusate Sodium 100 Mg Capsule PO DAILY PRN Constipation Ferrous Sulfate 324 mg 09/12/20 09:00 09/15/20 10:06 Ferrous Sulfate 324 Mg Tablet.Dr PO 324 mg DAILY MAHESH Administration Remdesivir 100 mg/ Sodium 230 mls @ 115 mls/hr 09/13/20 20:00 09/14/20 22:29 Chloride IV 09/16/20 21:59 Infused Q24H [facility] Infusion Insulin Glargine 36 unit 09/14/20 12:28 09/15/20 10:05 Insulin Glargine,Hum.Rec.Anlog 100 Unit/Ml 10 Ml Vial SUBCUT 36 unit DAILY MAHESH Administration Insulin Human Lispro 0 unit 09/11/20 16:30 09/15/20 10:07 Insulin Lispro 100 Unit/Ml 3 Ml Vial SUBCUT 6 unit QIDACHS [facility] Administration Protocol Omeprazole 20 mg 09/12/20 06:30 09/15/20 05:55 Omeprazole 20 Mg Capsule. PO 20 mg DAILY@0630 [facility] Administration Ondansetron HCl 4 mg 09/11/20 15:03 Ondansetron Hcl 4 Mg/2 Ml Vial IVPUSH Q8H PRN Nausea and Vomiting Pharmacy Consult 1 each 09/11/20 12:12 Consult Rx Perform Med Rec MISCELLANE ONCE PRN Consult order Pyridoxine HCl 100 mg 09/12/20 09:00 09/15/20 10:05 Pyridoxine Hcl (Vitamin B6) 50 Mg Tablet PO 100 mg DAILY [facility] Administration Sodium Chloride 3 ml 09/11/20 16:00 09/15/20 10:05 0.9 % Sodium Chloride Flush 3 Ml Syringe IVFLUSH 3 ml QSHIFT [facility] Administration Valsartan 160 mg 09/12/20 09:00 09/15/20 10:06 Valsartan 160 Mg Tablet PO 160 mg DAILY [facility] Administration Protocol Warfarin Sodium 2.5 mg 09/14/20 18:00 09/14/20 18:03 Warfarin Sodium 2.5 Mg Tablet PO 2.5 mg DAILY@1800 [facility] Administration Labs CBC & Chem 7: 09/15/20 05:47 09/15/20 05:47 Microbiology Microbiology Results: Microbiology 09/11/20 10:52 Blood - Venous Blood Culture - Preliminary No growth after 48 hours. 09/11/20 10:49 Blood - Venous Blood Culture - Preliminary No growth after 48 hours. Assessment and Plan (1) Acute respiratory failure with hypoxia: Status: Acute (2) Pneumonia due to COVID-19 virus: Status: Acute Assessment and Plan: hospital d#4 70yo M with HTN, DM2, hx of CVA, PFO s/p occlusion and anticoagulated with warfarin, ROBERTO not on CPAP, CKD3, gout, venous insufficiency [place] [facility] [facility] [place], SaO2 81-86% on RA COVID-19 positive; symptoms for 10d prior to admission sinus pause up to 4.7sec on 09/13 sinus pause - likely underlying SSS given prior atrial surgery - d/c'ed metoprolol 09/13 cardio appreciated, no need for pacer for now, monitor # COVID-19 pneumonia - dexamethasone d#11/08. remdesivir d#11/03. ID following. continue to monitor inflammatory markers # acute hypoxic respiratory failure - supplemental O2, wean as tolerated, encourage awake proning # viral sepsis - due to COVID-19; doubt bacterial superinfection # lactic acidosis - resolved # HTN - continue valsartan, d/c'ed metoprolol # CKD3 - SCr stable/improved, avoid nephrotoxins # PFO closure- ?anticoagulated with warfarin # DM2, A1c 8.1, with steroid-induced hyperglycemia - basal/bolus insulin # gout - continue allopurinol # VTE ppx - warfarin
[2020-09-15 11:49] LABS: Glucose, Whole Blood 238 mg/dL (60-115)
[2020-09-15 12:00] VITALS: BP 110/53; PULSE 52; RESP 20; TEMP 36.6; O2SAT 97
[2020-09-15 15:14] VITALS: BP 132/63; PULSE 58; RESP 20; TEMP 36.8; O2SAT 93
[2020-09-15 16:15] LABS: Glucose, Whole Blood 296 mg/dL (60-115)
[2020-09-15] MEDS: Warfarin Sodium 2.5 MG TABLET PO (17:33)
[2020-09-15 19:04] VITALS: BP 146/62; PULSE 61; RESP 20; TEMP 36.6; O2SAT 97
[2020-09-15] MEDS: Remdesivir 100 MG in 0.9 % Sodium Chloride 230 ML 115 MG IV (19:42)
[2020-09-15 19:54] LABS: Glucose, Whole Blood 425 mg/dL (60-115)
[2020-09-15 23:08] LABS: Glucose, Whole Blood 295 mg/dL (60-115)
[2020-09-15 23:15] VITALS: BP 133/62; PULSE 53; RESP 16; TEMP 36.4; O2SAT 94
[2020-09-16] VITALS (9 sets, daily range): BP systolic 130–153; BP diastolic 61–71; PULSE 44–70; RESP 15–18; TEMP 36.3–37; O2SAT 91–97
[2020-09-16 03:07] LABS: Glucose, Whole Blood 201 mg/dL (60-115)
--- NOTE | 2020-09-16 04:21 | PC.NURSE ---
Bedtime poc at 194 was 425, per sliding scale patient to get [address] Olivo notified of elevated blood sugar, per md no additional insulin at this time and recheck blood sugar at 2300. 2300; rechecked poc, 295. Hospitalist made aware, per md recheck in 3-4 hours again. 0300; rechecked poc, 201. Hospitalist made aware poc is trending down. Continue to monitor.
[2020-09-16] MEDS: Omeprazole 20 MG CAPSULE.DR PO (06:21)
[2020-09-16 07:11] LABS: Glucose, Whole Blood 188 mg/dL (60-115)
[2020-09-16] MEDS: 0.9 % Sodium Chloride Flush 3 ML SYRINGE IVFLUSH ×3 (08:18→23:56)
[2020-09-16] MEDS: Ferrous Sulfate 324 MG TABLET.DR PO (08:18)
[2020-09-16] MEDS: Insulin Lispro 100 UNIT/ML 3 ML VIAL SUBCUT ×4 (08:18→20:54)
[2020-09-16] MEDS: Insulin Glargine,Hum.rec.anlog 100 UNIT/ML 10 ML VIAL 36 UNIT SUBCUT (08:18)
[2020-09-16] MEDS: Cyanocobalamin (Vitamin B-12) 1,000 MCG TABLET 1000 MCG PO (08:18)
[2020-09-16] MEDS: allopurinoL 100 MG TABLET PO (08:18)
[2020-09-16] MEDS: Valsartan 160 MG TABLET PO (08:21)
[2020-09-16] MEDS: Pyridoxine HCl (Vitamin B6) 50 MG TABLET 100 MG PO (08:21)
[2020-09-16 08:43] LABS: INTERNATIONAL NORM RATIO 2.3 (0.9-1.1); Prothrombin Time 27.7 SEC (10.8-13.0)
--- NOTE | 2020-09-16 09:38 | PM.PNCARD ---
Subjective Subjective Date of Service: 09/16/20 Principal diagnosis: COVID, resp failure with hypoxia, Sinus pause, bifascicular block Interval history: Cardiology follow up for Sinus paus, bifascicular block. Seen at 0900. Today he reports that his breathing is feeling some improvement. He is still wearing O2 with nasal cannula. No reports of lightheadedness, presyncope. No chest pains, palpitations. Ate breakfast already this am. Review of Systems Review of Systems as above Yes all other systems are reviewed and are negative Physical Exam Vital Signs: Last Vital Signs Temp 98.4 F 09/16/20 07:24 Pulse 57 09/16/20 08:21 Resp 18 09/16/20 07:24 BP 153/66 H 09/16/20 08:21 Pulse Ox 97 09/16/20 07:24 Body Mass Index 35.9 Const General: cooperative, no acute distress, alert and awake Orientation/consciousness: patient oriented x3 Neck Neck: Yes normal visual inspection and Yes no JVD Resp Other: lungs dim posterior bases, no cough noted, Nasal cannula O2 at 3.5 liters. Effort & Inspection: normal respiratory effort, able to speak in complete sentences and not labored Auscultation: clear to auscultation bilaterally, no rales, no rhonchi and no wheezes Cardio Rate: regular rate Rhythm: regular rhythm Heart sounds: S1 normal heart sound present and S2 normal heart sound present Peripheral pulses: Peripheral pulses 2+ throughout GI Inspection: Yes normal to inspection Neuro General: patient oriented x3 Extrem General: Yes normal to inspection and No edema Results Labs and Meds Result diagrams: 09/15/20 05:47 09/15/20 05:47 Lab results: Laboratory Results - last 24 hr 09/15/20 09/15/20 09/15/20 11:25 16:01 19:43 PT INR POC Glucose 238 H 296 H 425 H* 09/15/20 09/16/20 09/16/20 23:04 03:03 06:55 PT INR POC Glucose 295 H 201 H 188 H 09/16/20 08:05 PT 27.7 H INR 2.3 H POC Glucose Progress Note: A&P Assessment and plan (1) Sinus pause: Status: Acute Assessment and Plan: Admit for COVID PNA, hypoxic resp failure. On tele monitor noted have sinus pause on 09/13 followed by junctional escape beats. He did have reported lightheadedness at that time. His Metoprolol was stopped. Since then he has had short sinus pauses, most recent was 2.3 seconds 09/15 at 1703. During the goal umpire of 09/16 his tele showed sinus joy rates 39-45. This morning he denies symptoms of lightheadedness in last day. His EKG shows SR with RBBB, Left anterior fasicucular block. Hx has surgical hx of PFO/ ASD closure 22 years ago. No reported hx of syncope. Discussed case with Dr Coles. Pt has clear evidence of conduction disease and is at high risk for higher degree heart block. Recommendation is for a dual chamber pacemaker placement. Reviewed with pt. He already at breakfast this am. Will consult thoracic surgery. Continue telemetry monitoring. No rate slowing medications. He is on coumadin for unclear reason. Please try to further discuss this with sister. INR goal 2-3. INR yesterday 2.5. We will follow along. (2) Bifascicular block: Status: Acute (3) Acute respiratory failure with hypoxia: Status: Acute Assessment and Plan: Still requiring O2 supplement. (4) Pneumonia due to COVID-19 virus: Status: Acute (5) S/P patent foramen ovale closure: Problem details: 22 years ago Status: Inactive Fall Risk Details Current Medications: Current Medications Generic Name Dose Route Start Last Admin Trade Name Freq PRN Reason Stop Dose Admin Acetaminophen 650 mg 09/11/20 15:03 09/15/20 05:06 Acetaminophen 325 Mg Tablet PO 650 mg Q6H PRN Administration Pain, Mild (Pain Scale 1-3) Albuterol Sulfate 2 puff 09/11/20 15:03 Albuterol Sulfate 90 Mcg 8 Gm Inhaler INHALE RQ4H PRN Shortness of Breath Allopurinol 100 mg 09/12/20 09:00 09/16/20 08:18 Allopurinol 100 Mg Tablet PO 100 mg DAILY MAHESH Administration Cyanocobalamin 1,000 mcg 09/12/20 09:00 09/16/20 08:18 Cyanocobalamin (Vitamin B-12) 1,000 Mcg Tablet PO 1,000 mcg DAILY MAHESH Administration Dexamethasone Sodium Phosphate 6 mg 09/12/20 09:00 09/16/20 08:18 Dexamethasone Sod Phosphate/Pf 10 Mg/Ml Vial IVPUSH 6 mg DAILY MAHESH Administration Docusate Sodium 100 mg 09/11/20 15:03 Docusate Sodium 100 Mg Capsule PO DAILY PRN Constipation Ferrous Sulfate 324 mg 09/12/20 09:00 09/16/20 08:18 Ferrous Sulfate 324 Mg Tablet. PO 324 mg DAILY MAHESH Administration Remdesivir 100 mg/ Sodium 230 mls @ 115 mls/hr 09/13/20 20:00 09/15/20 21:52 Chloride IV 09/16/20 21:59 Infused Q24H MAHESH Infusion Insulin Glargine 36 unit 09/14/20 12:28 09/16/20 08:18 Insulin Glargine,Hum.Rec.Anlog 100 Unit/Ml 10 Ml Vial SUBCUT 36 unit DAILY MAHESH Administration Insulin Human Lispro 0 unit 09/11/20 16:30 09/16/20 08:18 Insulin Lispro 100 Unit/Ml 3 Ml Vial SUBCUT 4 unit QIDACHS [facility] Administration Protocol Omeprazole 20 mg 09/12/20 06:30 09/16/20 06:21 Omeprazole 20 Mg Capsule. PO 20 mg DAILY@0630 MAHESH Administration Ondansetron HCl 4 mg 09/11/20 15:03 Ondansetron Hcl 4 Mg/2 Ml Vial IVPUSH Q8H PRN Nausea and Vomiting Pharmacy Consult 1 each 09/11/20 12:12 Consult Rx Perform Med Rec MISCELLANE ONCE PRN Consult order Pyridoxine HCl 100 mg 09/12/20 09:00 09/16/20 08:21 Pyridoxine Hcl (Vitamin B6) 50 Mg Tablet PO 100 mg DAILY MAHESH Administration Sodium Chloride 3 ml 09/11/20 16:00 09/16/20 08:18 0.9 % Sodium Chloride Flush 3 Ml Syringe IVFLUSH 3 ml QSHIFT [facility] Administration Valsartan 160 mg 09/12/20 09:00 09/16/20 08:21 Valsartan 160 Mg Tablet PO 160 mg DAILY [facility] Administration Protocol Warfarin Sodium 2.5 mg 09/14/20 18:00 09/15/20 17:33 Warfarin Sodium 2.5 Mg Tablet PO 2.5 mg DAILY@1800 MAHESH Administration Time Spent With Patient Time: Total time spent is greater than 50% in coordination of care (as documented) at patient's floor/unit and/or counseling patient: 18 Time with patient: 15 - 24 minutes
[2020-09-16 11:04] LABS: Glucose, Whole Blood 244 mg/dL (60-115)
--- NOTE | 2020-09-16 13:54 | HO.PM.IMPN ---
Subjective Subjective Date of Service: 09/16/20 Interval History: feels fine Cardiovascular Cardiovascular: Reports no additional cardiovascular complaints Respiratory Respiratory: Reports no additional respiratory complaints Physical Exam Vital Signs: Vital Signs: Last Vital Signs Temp 98.6 F 09/16/20 11:15 Pulse 50 09/16/20 11:17 Resp 18 09/16/20 11:15 BP 142/67 H 09/16/20 11:17 Pulse Ox 93 09/16/20 11:17 Body Mass Index 35.9 General: AO X 3, no acute distress Resp: CTA bilateral CVS: S1,S2,RRR GI: soft, non tender, non distended Neuro: motor grossly intact Psych: appropriate affect Objective Data Current Medications Generic Name Dose Route Start Last Admin Trade Name Freq PRN Reason Stop Dose Admin Acetaminophen 650 mg 09/11/20 15:03 09/15/20 05:06 Acetaminophen 325 Mg Tablet PO 650 mg Q6H PRN Administration Pain, Mild (Pain Scale 1-3) Albuterol Sulfate 2 puff 09/11/20 15:03 Albuterol Sulfate 90 Mcg 8 Gm Inhaler INHALE RQ4H PRN Shortness of Breath Allopurinol 100 mg 09/12/20 09:00 09/16/20 08:18 Allopurinol 100 Mg Tablet PO 100 mg DAILY MAHESH Administration Cyanocobalamin 1,000 mcg 09/12/20 09:00 09/16/20 08:18 Cyanocobalamin (Vitamin B-12) 1,000 Mcg Tablet PO 1,000 mcg DAILY MAHESH Administration Dexamethasone Sodium Phosphate 6 mg 09/12/20 09:00 09/16/20 08:18 Dexamethasone Sod Phosphate/Pf 10 Mg/Ml Vial IVPUSH 6 mg DAILY MAHESH Administration Docusate Sodium 100 mg 09/11/20 15:03 Docusate Sodium 100 Mg Capsule PO DAILY PRN Constipation Ferrous Sulfate 324 mg 09/12/20 09:00 09/16/20 08:18 Ferrous Sulfate 324 Mg Tablet.Dr PO 324 mg DAILY MAHESH Administration Remdesivir 100 mg/ Sodium 230 mls @ 115 mls/hr 09/13/20 20:00 09/15/20 21:52 Chloride IV 09/16/20 21:59 Infused Q24H MAHESH Infusion Insulin Glargine 36 unit 09/14/20 12:28 09/16/20 08:18 Insulin Glargine,Hum.Rec.Anlog 100 Unit/Ml 10 Ml Vial SUBCUT 36 unit DAILY MAHESH Administration Insulin Human Lispro 0 unit 09/11/20 16:30 09/16/20 11:51 Insulin Lispro 100 Unit/Ml 3 Ml Vial SUBCUT 6 unit QIDACHS [facility] Administration Protocol Omeprazole 20 mg 09/12/20 06:30 09/16/20 06:21 Omeprazole 20 Mg Capsule.Dr PO 20 mg DAILY@0630 [facility] Administration Ondansetron HCl 4 mg 09/11/20 15:03 Ondansetron Hcl 4 Mg/2 Ml Vial IVPUSH Q8H PRN Nausea and Vomiting Pharmacy Consult 1 each 09/11/20 12:12 Consult Rx Perform Med Rec MISCELLANE ONCE PRN Consult order Pyridoxine HCl 100 mg 09/12/20 09:00 09/16/20 08:21 Pyridoxine Hcl (Vitamin B6) 50 Mg Tablet PO 100 mg DAILY [facility] Administration Sodium Chloride 3 ml 09/11/20 16:00 09/16/20 08:18 0.9 % Sodium Chloride Flush 3 Ml Syringe IVFLUSH 3 ml QSHIFT [facility] Administration Valsartan 160 mg 09/12/20 09:00 09/16/20 08:21 Valsartan 160 Mg Tablet PO 160 mg DAILY [facility] Administration Protocol Warfarin Sodium 2.5 mg 09/14/20 18:00 09/15/20 17:33 Warfarin Sodium 2.5 Mg Tablet PO 2.5 mg DAILY@1800 [facility] Administration Labs CBC & Chem 7: 09/15/20 05:47 09/15/20 05:47 Microbiology Microbiology Results: Microbiology 09/11/20 10:52 Blood - Venous Blood Culture - Final No growth after 5 days. 09/11/20 10:49 Blood - Venous Blood Culture - Final No growth after 5 days. Assessment and Plan (1) Acute respiratory failure with hypoxia: Status: Acute (2) Pneumonia due to COVID-19 virus: Status: Acute Assessment and Plan: hospital d#5 70yo M with HTN, DM2, hx of CVA, PFO s/p occlusion and anticoagulated with warfarin, ROBERTO not on CPAP, CKD3, gout, venous insufficiency sent in from [facility] [place] Coumad[facility] with hypoxia, SaO2 81-86% on RA COVID-19 positive; symptoms for 10d prior to admission sinus pause up to 4.7sec on 09/13 sinus pause still with events off beta nima, plan for possible pacer COVID-19 pneumonia - dexamethasone d#12/08. remdesivir d#12/03. # acute hypoxic respiratory failure - supplemental O2, wean as tolerated, encourage awake proning # viral sepsis - due to COVID-19; doubt bacterial superinfection # lactic acidosis - resolved # HTN - continue valsartan, d/c'ed metoprolol # CKD3 - SCr stable/improved, avoid nephrotoxins # PFO closure- ?anticoagulated with warfarin # DM2, A1c 8.1, with steroid-induced hyperglycemia - basal/bolus insulin # gout - continue allopurinol # VTE ppx - warfarin
[2020-09-16 16:06] LABS: Glucose, Whole Blood 398 mg/dL (60-115)
[2020-09-16] MEDS: Warfarin Sodium 2.5 MG TABLET PO (18:02)
[2020-09-16 19:45] LABS: Glucose, Whole Blood 261 mg/dL (60-115)
[2020-09-16] MEDS: Remdesivir 100 MG in 0.9 % Sodium Chloride 230 ML 115 MG IV (20:56)
[2020-09-17] VITALS: BP 147/68; PULSE 50; RESP 18; TEMP 36.5; O2SAT 93
[2020-09-17 04:00] VITALS: BP 153/67; PULSE 48; RESP 18; TEMP 37; O2SAT 95
[2020-09-17 07:22] VITALS: BP 165/74; PULSE 49; RESP 18; TEMP 37.1; O2SAT 92
[2020-09-17 07:31] LABS: Glucose, Whole Blood 132 mg/dL (60-115)
[2020-09-17 07:54] LABS: INTERNATIONAL NORM RATIO 2.1 (0.9-1.1); Prothrombin Time 25.3 SEC (10.8-13.0)
[2020-09-17] MEDS: 0.9 % Sodium Chloride Flush 3 ML SYRINGE IVFLUSH (09:00)
[2020-09-17 09:45] VITALS: BP 165/74; PULSE 49; O2SAT 92
--- NOTE | 2020-09-17 09:46 | P.PNCA_ITS ---
Subjective Subjective Date of Service: 09/17/20 Principal diagnosis: COVID, resp failure with hypoxia, Sinus pause, bifascicular block Interval history: Cardiology follow up for sinus pause, bifascicular block. Seen at 0915. Today he reports feeling well and interested in going home. No longer using O2 supplement. No CP, sob, palpitation. Denies lightheadedness. Has been ambulating in the room without problems. Review of Systems Review of Systems as above Yes all other systems are reviewed and are negative Physical Exam Vital Signs: Last Vital Signs Temp 98.8 F 09/17/20 07:22 Pulse 49 L 09/17/20 07:22 Resp 18 09/17/20 07:22 BP 165/74 H 09/17/20 07:22 Pulse Ox 92 09/17/20 07:22 Body Mass Index 35.9 Const General: cooperative, no acute distress, alert and awake Orientation/consciousness: patient oriented x3 HENMT Head: Yes normal to inspection Eyes Conjunctivae: conjunctivae normal Neck Neck: Yes normal visual inspection and Yes no JVD Resp Effort & Inspection: normal respiratory effort, able to speak in complete sentences and not labored Auscultation: clear to auscultation bilaterally, no rales, no rhonchi and no wheezes Cardio Palpation: normal PMI Rate: regular rate Rhythm: regular rhythm Heart sounds: S1 normal heart sound present and S2 normal heart sound present Peripheral pulses: Peripheral pulses 2+ throughout GI Inspection: Yes normal to inspection Skin Other: venous stasis changes to lower legs General skin exam: no rashes or lesions noted Neuro General: patient oriented x3 Extrem General: Yes normal to inspection and No edema Results Labs and Meds Result diagrams: 09/15/20 05:47 09/15/20 05:47 Lab results: Laboratory Results - last 24 hr 09/16/20 09/16/20 09/16/20 10:57 15:42 19:34 PT INR POC Glucose 244 H 398 H* 261 H 09/17/20 09/17/20 07:16 07:25 PT 25.3 H INR 2.1 H POC Glucose 132 H Progress Note: A&P Assessment and plan (1) Sinus bradycardia: Status: Acute Assessment and Plan: Admit for COVID PNA, hypoxic resp failure. On tele monitor noted have sinus pause on 09/13 followed by junctional escape beats. He did have reported lightheadedness at that time. His Metoprolol was stopped. Since then he has had short sinus pauses, most recent was 2.3 seconds 09/15 at 1703. No pauses since then however he is noted to have asymptomatic sinus bradycardia with rates 40- 50s. His EKG this admit shows SR with RBBB, Left anterior fasicucular block. Hx has surgical hx of PFO/ ASD closure 22 years ago. No reported hx of syncope. Dr Coles discussed case with EP Dr Montenegro yesterday. Will hold on PPM placement at present. Keep off BB and all rate slowing medications. Will place ILR for close cardiac monitoring. Discussed this with patient and he is agreeable with plan. ILR scheduled for [address] Adame. INR 2.1. Following ILR placement he can be discharged from cardiology perspective. We will arrange outpt cardiology follow up. (2) Sinus pause: Status: Acute (3) Bifascicular block: Status: Acute (4) Acute respiratory failure with hypoxia: Status: Acute Assessment and Plan: Improving. No longer requiring supplemental O2. (5) Pneumonia due to COVID-19 virus: Status: Acute (6) HTN (hypertension): Status: Acute Assessment and Plan: BP has been elevated this admit. Off his usual home metoprolol. Has been on his Valsartan. Cr initially elevated and improved back to normal range. BP this am 165/74. Can increase Valsartan to 320mg daily and plan for BMP in 1 week. We can further eval BP at time of OV follow up. Fall Risk Details Current Medications: Current Medications Generic Name Dose Route Start Last Admin Trade Name Chris PRN Reason Stop Dose Admin Acetaminophen 650 mg 09/11/20 15:03 09/15/20 05:06 Acetaminophen 325 Mg Tablet PO 650 mg Q6H PRN Administration Pain, Mild (Pain Scale 1-3) Albuterol Sulfate 2 puff 09/11/20 15:03 Albuterol Sulfate 90 Mcg 8 Gm Inhaler INHALE RQ4H PRN Shortness of Breath Allopurinol 100 mg 09/12/20 09:00 09/17/20 09:03 Allopurinol 100 Mg Tablet PO Not Given DAILY MAHESH Cyanocobalamin 1,000 mcg 09/12/20 09:00 09/17/20 09:03 Cyanocobalamin (Vitamin B-12) 1,000 Mcg Tablet PO Not Given DAILY [facility] Dexamethasone Sodium Phosphate 6 mg 09/12/20 09:00 09/17/20 09:06 Dexamethasone Sod Phosphate/Pf 10 Mg/Ml Vial IVPUSH 6 mg DAILY [facility] Administration Docusate Sodium 100 mg 09/11/20 15:03 Docusate Sodium 100 Mg Capsule PO DAILY PRN Constipation Ferrous Sulfate 324 mg 09/12/20 09:00 09/16/20 08:18 Ferrous Sulfate 324 Mg Tablet. PO 324 mg DAILY [facility] Administration Insulin Glargine 36 unit 09/14/20 12:28 09/17/20 09:04 Insulin Glargine,Hum.Rec.Anlog 100 Unit/Ml 10 Ml Vial SUBCUT Not Given DAILY [facility] Insulin Human Lispro 0 unit 09/11/20 16:30 09/17/20 08:56 Insulin Lispro 100 Unit/Ml 3 Ml Vial SUBCUT Not Given QIDACHS [facility] Protocol Omeprazole 20 mg 09/12/20 06:30 09/17/20 05:29 Omeprazole 20 Mg Capsule. PO Not Given DAILY@0630 [facility] Ondansetron HCl 4 mg 09/11/20 15:03 Ondansetron Hcl 4 Mg/2 Ml Vial IVPUSH Q8H PRN Nausea and Vomiting Pharmacy Consult 1 each 09/11/20 12:12 Consult Rx Perform Med Rec MISCELLANE ONCE PRN Consult order Pyridoxine HCl 100 mg 09/12/20 09:00 09/17/20 09:03 Pyridoxine Hcl (Vitamin B6) 50 Mg Tablet PO Not Given DAILY [facility] Sodium Chloride 3 ml 09/11/20 16:00 09/17/20 09:00 0.9 % Sodium Chloride Flush 3 Ml Syringe IVFLUSH 3 ml QSHIFT [facility] Administration Valsartan 160 mg 09/12/20 09:00 09/16/20 08:21 Valsartan 160 Mg Tablet PO 160 mg DAILY [facility] Administration Protocol Warfarin Sodium 2.5 mg 09/14/20 18:00 09/16/20 18:02 Warfarin Sodium 2.5 Mg Tablet PO 2.5 mg DAILY@1800 [facility] Administration Time Spent With Patient Time: Total time spent is greater than 50% in coordination of care (as documented) at patient's floor/unit and/or counseling patient: 16 Time with patient: 15 - 24 minutes
[2020-09-17] MEDS: Cyanocobalamin (Vitamin B-12) 1,000 MCG TABLET 1000 MCG PO (10:54)
[2020-09-17] MEDS: Valsartan 320 MG TABLET PO (10:54)
[2020-09-17] MEDS: allopurinoL 100 MG TABLET PO (10:55)
--- NOTE | 2020-09-17 11:06 | PM.DS ---
DS: Providers Provider Date of Service: 09/17/20 Date of admission: 09/11/20 12:57 Primary care physician: Jeanne Mendez MD Consults: 09/12/20 07:20 Consult to Infectious Diseases Routine Consulting Provider: Bouchra Herrera Reason for consultation: COVID-19 Has provider been notified: No 09/13/20 12:08 Consult to Cardiology Routine Consulting Provider: Kenny Adame Reason for consultation: sinus pauses up to 4.7sec, d/c'ed metoprolol DS: Diagnosis Discharge Diagnosis (1) Sinus bradycardia: Status: Acute (2) Sinus pause: Status: Acute (3) Bifascicular block: Status: Acute (4) Acute respiratory failure with hypoxia: Status: Acute (5) Pneumonia due to COVID-19 virus: Status: Acute (6) HTN (hypertension): Status: Acute DS: Medications Discharge Medications Home Medications: Home Medications Medication Instructions Recorded Confirmed blood sugar diagnostic #10 ea 08/19/20 dulaglutide 1.5 mg/0.5 mL 1.5 mg SUBCUT QWEEK 08/19/20 09/11/20 subcutaneous pen injector omeprazole 20 mg capsule,delayed 20 mg PO DAILY 08/19/20 09/11/20 release warfarin 2.5 mg tablet 5 mg PO DAILY@1600 08/19/20 09/11/20 allopurinol 1 tab PO DAILY 09/11/20 09/11/20 cyanocobalamin (vitamin B-12) 1 tab PO DAILY 09/11/20 09/11/20 ferrous sulfate 1 tab PO DAILY 09/11/20 09/11/20 Previous Rx's Medication Instructions Recorded pyridoxine (vitamin B6) 100 mg 100 mg PO DAILY #90 tab 08/19/20 tablet dexamethasone [Decadron] 6 mg PO DAILY #3 tab 09/17/20 valsartan [Diovan] 320 mg PO DAILY #30 tab 09/17/20 DS: Summary Hospital Course Hospital Course: Patient was admitted for acute hypoxic respiratory failure secondary to COVID pneumonia. He was seen by infectious disease recommended remdesivir and Decadron. Patient completed 5 days of remdesivir and 7 days of Decadron. He will have 3 more days outpatient of Decadron p.o.. Patient's symptoms were improved. He was able to be weaned off oxygen. And feels back to baseline. Course was complicated by sinus bradycardia and sinus pauses. He was taken off metoprolol. He was continued to be observed on telemetry and had asymptomatic bradycardia with several pauses but all under 3 seconds. Cardiology discussed with electrophysiology and decision was made to forego pacer placement for now and to place implantable loop recorder which was completed. Patient will follow-up with Cardiology. Was also noted to be hypertensive and his valsartan was increased from 160 mg p.o. to 320 mg p.o. daily. He should have a BMP in 1 week. Time Spent with Patient Time attestation: Total time spent providing and/or coordinating discharge services: Discharge coordination time: Greater than 30 minutes Physical Exam Vital Signs: Vital Signs: Last Vital Signs Temp 98.8 F 09/17/20 07:22 Pulse 49 L 09/17/20 09:45 Resp 18 09/17/20 07:22 BP 165/74 H 09/17/20 09:45 Pulse Ox 92 09/17/20 09:45 Body Mass Index 35.9 General: AO X 3, no acute distress Resp: CTA bilateral CVS: S1,S2,RRR GI: soft, non tender, non distended Neuro: motor grossly intact Psych: appropriate affect DS: Data Data Completed and Pending Labs on day of discharge: Laboratory Results - last 24 hr 09/16/20 09/16/20 09/17/20 15:42 19:34 07:16 PT 25.3 H INR 2.1 H POC Glucose 398 H* 261 H 09/17/20 07:25 PT INR POC Glucose 132 H Discharge Plan Discharge Patient Disposition: Home Health Service Referrals: Jeanne Mendez MD [Primary Care Provider] - Discharge Medications: New valsartan [Diovan] 320 mg Tablet 320 mg PO DAILY Qty: 30 RF: 0 dexamethasone [Decadron] 6 mg tablet 6 mg PO DAILY Qty: 3 RF: 0 Continued cyanocobalamin (vitamin B-12) 1,000 mcg tablet 1 tab PO DAILY RF: 0 allopurinol 100 mg tablet 1 tab PO DAILY RF: 0 ferrous sulfate 325 mg (65 mg iron) tablet 1 tab PO DAILY RF: 0 dulaglutide 1.5 mg/0.5 mL pen injector 1.5 mg subcut QWEEK RF: 0 warfarin 2.5 mg tablet 5 mg PO DAILY@1600 RF: 0 (DME) blood sugar diagnostic Strip See Rx Instructions strip .ROUTE .MEDSUPPLY Qty: 10 RF: 0 omeprazole 20 mg capsule,delayed release(DR/EC) 20 mg PO DAILY RF: 0 pyridoxine (vitamin B6) 100 mg tablet 100 mg PO DAILY Qty: 90 RF: 3 Discontinued metoprolol tartrate 25 mg tablet 25 mg PO BID RF: 0 valsartan 160 mg tablet 160 mg PO DAILY RF: 0 Discharge Orders: Discharge Order (Routine); Ordered 09/17/20 Ordered By: Dru White Diet: advance to usual diet Activity on Discharge: As tolerated Stand Alone Forms: Patient Portal Discharge page Other Ambulatory Orders: Basic Metabolic Panel (Routine) Timeframe: 1 Week Facility: [facility] - Location: Laboratory Ordered By: Dru White Care Plan Goals: recovery, Health Concerns: covid, sinus pause Plan of Treatment: lolisae hossein, stop metoprolol, follow up cardio, labs in one week
--- NOTE | 2020-09-17 11:08 | W.MHC.F2F ---
Service Date Service Date: 09/17/20 Reasons for Services Reason for assisted: teach disease management Homebound: Leaving the home is medically contraindicated at this time without the asist of a device and/or another person due th the listed conditions above and below. Certification: Based on the above findings, I certify that this patient is confined to the home and needs intermittent assisted care, physical therapy and/or speech therapy, or continues to need occupational therapy. The patient is under my care, and I have initiated the establishment of the plan of care. The patient will be followed by a physician who will periodically review the plan of care.
[2020-09-17 11:37] VITALS: BP 125/66; PULSE 59; RESP 18; TEMP 37.1; O2SAT 98
[2020-09-17 11:48] LABS: Glucose, Whole Blood 215 mg/dL (60-115)
--- NOTE | 2020-09-17 12:14 | PM.OP ---
Brief Operative Note Date of Service: 09/17/20 Post-op diagnosis: same Procedure: Placement of implantable loop recorder Implants: [employer] confirm was implanted using Seldinger technique. Patient's precordial area was prepped and draped in a sterile fashion. Patient was then given 2% lidocaine with epinephrine intradermally and subcutaneously. [employer] implantable loop recorder was then implanted using Seldinger technique. The wound was then closed with Steri-Strips. Patient tolerated the procedure well. Measured R-waves 0.25 mV Surgeon: Kenny Adame MD Anesthesia: local Estimated blood loss (mL): 1 Pathology: none sent Disposition: floor
[2020-09-17] MEDS: Insulin Lispro 100 UNIT/ML 3 ML VIAL SUBCUT ×2 (13:06→16:45)
--- NOTE | 2020-09-17 13:07 | MHC.CM.PN ---
DP Male 70 dx covid+ s/p Loop monitor placement @ bedside. Met with the Pt re DC planning. He is open to [facility]. His sis is a nurse. He will speak with her prior to giving preferences to T/W. Phone given to Pt @ his request to contact his sister. CM will follow.
--- NOTE | 2020-09-17 13:50 | MHC.CM.PN ---
LEANNA PT referred to [facility] @ his request. The Pts Sister is providing transportation to home.
--- NOTE | 2020-09-17 14:50 | PC.NURSE ---
dsg intact on left upper chest. Clean and dry. Asymptomatic VSS
--- NOTE | 2020-09-17 14:54 | MHC.INPTTRAN ---
loop monitor placed left upper chest. To Follow up with cardiology outpatient. Denies pain VSS. Dsg clean and dry.
[2020-09-17 15:15] VITALS: BP 125/76; PULSE 102; RESP 20; TEMP 37.1; O2SAT 96
[2020-09-17 16:23] LABS: Glucose, Whole Blood 443 mg/dL (60-115)
[2020-09-17 16:23] LABS: Glucose, Whole Blood 243 mg/dL (60-115)
--- NOTE | 2020-09-17 16:48 | PC.NURSE ---
Pt admitted for +COVID-19 and bradycardia. Pt s/p loop recorder, and is to follow up with cardiology once discharged. Pt a/o x3, pt is discharged per MD orders. POC at 1600 elevated at 443. Pt covered with 16 units of insulin per ISS prior to discharge. Pt ate 100% of his dinner. Dr. White updated on POC and ok to still discharge pt. Pt educated to check blood sugar at bedtime and to follow insulin scale at home. D/c packet given to pt. Pt verbalized understanding of d/c instructions. No pain upon discharge. Pt left unit in no obvious distress via wc.
== END 2020-09-17 16:57 | disposition home health service (06) | DRG 853 ==
LOC: HO.ED 11:54 → HO.EDOVER 14:11 → HO.IMC 16:00
PROVIDERS: Internal Medicine Cardiovascular Disease; Physician Assistant Medical; Admitting Provider Family Medicine; Emergency Provider Internal Medicine; PCP Internal Medicine; Visit Provider Internal Medicine
PROC: (CPT 33285; principal; 2020-09-17 12:50)
DX: A41.89 Other specified sepsis (principal); U07.1 COVID-19; J96.01 Acute respiratory failure with hypoxia; J12.82 Pneumonia due to coronavirus disease 2019; I45.2 Bifascicular block; E87.2 Acidosis; M10.9 Gout, unspecified; I12.9 Hypertensive chronic kidney disease with stage 1 through stage 4 chronic kidney disease, or unspecified chronic kidney disease; G47.33 Obstructive sleep apnea (adult) (pediatric); I49.5 Sick sinus syndrome; E11.22 Type 2 diabetes mellitus with diabetic chronic kidney disease; N18.30 Chronic kidney disease, stage 3 unspecified; Z87.74 Personal history of (corrected) congenital malformations of heart and circulatory system; Z79.01 Long term (current) use of anticoagulants; Z79.82 Long term (current) use of aspirin; Z79.899 Other long term (current) drug therapy
CPT/HCPCS: 36415; 71045; 71250; 80048; 80053; 80076; 82009; 82728; 82803; 82947; 83036; 83605; 83615; 83735; 84145; 84484; 85025; 85379; 85610; 85730; 86140; 87040; 87635; 93005; 96365; 96367; 97110; 97116; 97162; 99285; C1764; J0696; J1100; J3490

== ENCOUNTER 2020-09-26 09:44 | Outpatient (REF) | payer OTHER, SELFPAY | END 2020-09-26 09:45 | disposition home or self-care (01) | LOC: HO.LNP 09:44 | PROVIDERS: PCP Internal Medicine; Visit Provider Nurse Practitioner Family | DX: Z13.89 Encounter for screening for other disorder (principal) ==

== ENCOUNTER 2020-09-27 | Outpatient (REF) | payer OTHER, SELFPAY ==
[2020-09-27 11:28] LABS: Anion Gap 11 (12-20); Blood Urea Nitrogen 22 mg/dL (9-16); Calcium 9.3 mg/dL (8.4-10.2); Carbon Dioxide 29 mmol/L (22-29); Chloride 105 mmol/L (96-108); Estimated Glomerular Filt Rate > 60; Glucose Random 180 mg/dL (60-115); Potassium 4.9 mmol/L (3.3-5.1); Sodium 140 mmol/L (135-145)
== END 2020-09-27 00:01 | disposition home or self-care (01) ==
LOC: HO.LAB
PROVIDERS: Visit Provider Internal Medicine
DX: I48.91 Unspecified atrial fibrillation (principal)
CPT/HCPCS: 36415; 80048

== ENCOUNTER 2020-12-01 12:13 | Outpatient (REF) | payer OTHER, SELFPAY ==
[2020-12-01 13:21] LABS: Hematocrit 43.5 % (42-52); Mean Corpuscular HGB Conc 32.2 g/dl (31.0-36.0); Mean Corpuscular Hemoglobin 30.6 pg (27.0-33.0); Mean Platelet Volume 10.8 fL (9.4-12.4); Platelet Count 182 X10*3/uL (160-400); Red Blood Count 4.58 X10*6/uL (4.60-5.80); Red Cell Distribution Width 14.3 % (11.0-16.0); White Blood Count 7.3 X10*3/uL (4.8-10.8)
[2020-12-01 13:44] LABS: Creatinine Urine 96.49 mg/dL; Protein/Creatinine Ratio, Ur 0.21 (<0.2); Total Protein Urine Random 20 mg/dL (<12)
[2020-12-01 13:45] LABS: Anion Gap 11 (12-20); Blood Urea Nitrogen 24 mg/dL (9-16); Calcium 9.9 mg/dL (8.4-10.2); Carbon Dioxide 28 mmol/L (22-29); Chloride 102 mmol/L (96-108); Estimated Glomerular Filt Rate 58; Potassium 4.3 mmol/L (3.3-5.1); Sodium 137 mmol/L (135-145)
== END 2020-12-01 12:14 | disposition home or self-care (01) ==
LOC: HO.LAB 12:13
PROVIDERS: Absent Provider Internal Medicine Cardiovascular Disease; PCP Internal Medicine; Visit Provider Internal Medicine Hypertension Specialist
DX: I45.2 Bifascicular block (principal); I45.5 Other specified heart block; R00.1 Bradycardia, unspecified; I12.9 Hypertensive chronic kidney disease with stage 1 through stage 4 chronic kidney disease, or unspecified chronic kidney disease; N18.31 Chronic kidney disease, stage 3a; Z87.74 Personal history of (corrected) congenital malformations of heart and circulatory system; Z45.09 Encounter for adjustment and management of other cardiac device
CPT/HCPCS: 36415; 80051; 82310; 82565; 84156; 84520; 85027

== ENCOUNTER → 2021-01-22 08:22 | Outpatient (REF) | payer OTHER, SELFPAY ==
--- NOTE | 2021-01-22 08:24 | CA_ITS ---
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 Study Quality: Fair ECG Rhythm: Sinus Conclusions: - 1. Normal LV systolic function with pseudonormal filling pattern 2. Mildly dilated ascending aorta and aortic root 3. Trivial aortic regurgitation with moderate mitral annular calcification 4. Normal RV systolic pressure 5. No pericardial effusion Findings Left Ventricle Normal left ventricular size, thickness, and systolic function. The visually estimated ejection fraction is between 60-65%. Spectral Doppler is indicative of a pseudonormal filling pattern. E/E prime ratio is between 8 and 15 consistent with indeterminate filling pressures. Right Ventricle Normal right ventricular cavity size and systolic function. Atria The left atrium is likely dilated. There is no evidence of interatrial shunt. The right atrium is normal in size. Aortic Valve There is mild calcification of the aortic valve. There is mild thickening of the aortic valve. There is no aortic valve stenosis. There is trace (trivial) aortic valve regurgitation. Mitral Valve There is mild anterior and moderate posterior mitral leaflet thickening. There is moderate mitral annular calcification. There is trace mitral valve regurgitation. There is no mitral valve stenosis. Pulmonic Valve The pulmonic valve is likely normal. Tricuspid Valve Normal tricuspid valve structure. There is trace tricuspid valve regurgitation. The right ventricular systolic pressure is 23 mmHg. Normal right atrial pressure. There is no evidence of pulmonary hypertension. Great Vessels The pulmonary artery was not well visualized. Venous The inferior vena cava is normal in size and collapses greater than 50% with inspiration. Pericardium/Pleural There is no evidence of pericardial effusion. Prior Study Comparison No prior study available for comparison. Measurements 2D Linear Measurements IVSd: 1.22 0.6-0.9/0.6-1.0 cm LVIDd: 4.13 3.9-5.3/4.2-5.9 cm LVIDd Index: 1.76 2.4-3.2/2.2-3.1 cm/m2 LVIDs: 2.60 2.0-3.6 cm LVPWd: 1.05 0.7-1.1 cm Ao Root: 4.10 2.1-3.5 cm LA Diam: 4.10 2.7-3.8/3.0-4.0 cm LAIDs Index: 1.75 1.5-2.3 cm/m2 LV Mass: 199.37 67-162/88-224 g LV Mass Index: 85.20 43-95/49-115 g/m2 LVOT Diam: 2.40 3.0+(-)1.3 cm 2D Systolic Function EF 4C: 60.30 >55% EF 2C: 63.30 >55% EF BiP: 63.40 >55% Mitral Valve MV Pk E: 0.97 MV PK A: 0.81 MV Decel Time: 216.00 E/A: 1.20 E'Lateral: 6.64 E'Medial: 6.53 E/E' Med: 14.80 E/E' Lat: 14.60 PHT: 63.00 MVA PHT: 3.49 Decel Faulk: 4.47 Aortic Valve AoV Pk Addy: 1.42 AoV Mn Addy: 0.95 AoV VTI: 0.31 AoV Pk Grad: 8.00 Aov Mn Grad: 4.00 AIDAN Cont.VTI: 3.96 LVOT LVOT Pk Addy: 1.13 LVOT Mn Addy: 0.80 LVOT VTI: 0.27 LVOT Pk Grad: 5.00 LVOT Mn Grad: 3.00 LVOT Diam: 2.40 LVOT Area: 4.52 Diastolic Function MV Pk E: 0.97 MV Pk A: 0.81 E/A: 1.20 E'Medial: 6.53 E/E' Med: 14.80 E' Laterial: 6.64 E/E' Lat: 14.60 Tricuspid Valve TR Pk Addy: 2.22 TR Pk Grad: 20.00 RA Press: 3.00 RVSP: 23.00 Great Vessels Aorta Ao Root-2D: 4.10 2.0-3.7 cm Sinus of Valsalva: 4.10 2.0-3.5 cm Ao Asc: 3.80 2.1-3.4 cm Ao Arch: 3.50 Updated in Other Vendor System with Status of Final Kenny Adame MD electronically signed on 01/22/2021 10:03:30 AM with status of Final
== END ==
LOC: HO.CARD 08:22
PROVIDERS: Visit Provider Nurse Practitioner Family
DX: I45.2 Bifascicular block (principal); R00.1 Bradycardia, unspecified; Z87.74 Personal history of (corrected) congenital malformations of heart and circulatory system
CPT/HCPCS: 93306

== ENCOUNTER → 2021-06-09 10:54 | Outpatient (BNVA) | payer OTHER, SELFPAY | PROVIDERS: PCP Internal Medicine; Visit Provider Internal Medicine Cardiovascular Disease | DX: Z45.09 Encounter for adjustment and management of other cardiac device (principal); I45.5 Other specified heart block; I45.2 Bifascicular block; I10 Essential (primary) hypertension; Z87.74 Personal history of (corrected) congenital malformations of heart and circulatory system | CPT/HCPCS: 93005 ==

== ENCOUNTER → 2021-08-03 14:14 | Outpatient (BNVA) | payer OTHER, SELFPAY | PROVIDERS: PCP Internal Medicine; Referring Provider Internal Medicine; Visit Provider Internal Medicine Cardiovascular Disease ==

== ENCOUNTER 2021-08-20 11:20 | Outpatient (REF) | payer OTHER, SELFPAY ==
--- NOTE | ~2021-08-20 | US_ITS ---
EXAMINATION: US RETROPERITONEAL LIMITED (RENAL ONLY) CLINICAL INFORMATION: Calculus of kidney. COMPARISON: Renal ultrasound 08/13/2020. CT abdomen and pelvis without contrast 01/05/2020. TECHNIQUE: Real-time imaging of the kidneys. FINDINGS: RIGHT KIDNEY: 11.2 x 5.0 x 5.9 cm (SAG x AP x TRV). The kidney is normal in size, contour, and echogenicity. Renal cortical thickness is normal. No calculi or focal parenchymal lesions. No hydronephrosis. LEFT KIDNEY: 10.7 x 5.2 x 5.7 cm (SAG x AP x TRV). The kidney is normal in size, contour, and echogenicity. Renal cortical thickness is normal. No focal parenchymal lesions or hydronephrosis. There are specular echoes suspicious for calculi interpolar region and lower pole, each approximately 3 mm. US/US renal BI IMPRESSION: 1. No hydronephrosis or caliectasis. 2. Probable nonobstructing calculi left mid and lower pole, each approximately 3 mm..
== END 2021-08-20 11:21 | disposition home or self-care (01) ==
LOC: HO.HMGCX 11:20
PROVIDERS: PCP Internal Medicine; Visit Provider Urology
DX: N20.0 Calculus of kidney (principal)
CPT/HCPCS: 76775

== ENCOUNTER → 2021-09-22 09:17 | Outpatient (BNVA) | payer OTHER, SELFPAY | PROVIDERS: PCP Internal Medicine; Referring Provider Internal Medicine; Visit Provider Internal Medicine Cardiovascular Disease ==

== ENCOUNTER → 2021-09-24 09:04 | Outpatient (BNVA) | payer OTHER, SELFPAY | PROVIDERS: PCP Internal Medicine ==

== ENCOUNTER 2021-10-27 13:44 | Outpatient (REF) | payer OTHER, SELFPAY ==
--- NOTE | ~2021-10-27 | US_ITS ---
EXAMINATION: US RETROPERITONEAL LIMITED (RENAL ONLY) CLINICAL INFORMATION: Question renal calculus. COMPARISON: Renal ultrasound dated 08/20/2021; CT abdomen and pelvis dated 01/05/2020. TECHNIQUE: Real-time imaging of the kidneys. FINDINGS: RIGHT KIDNEY: 10.6 x 5.3 x 6.1 cm (SAG x AP x TRV). The kidney is normal in size, contour, and echogenicity. Renal cortical thickness is normal. No calculi or focal parenchymal lesions. No hydronephrosis. LEFT KIDNEY: 9.6 x 5.3 x 4.7 cm (SAG x AP x TRV). The kidney is normal in size, contour, and echogenicity. Renal cortical thickness is normal. At the interpolar aspect, a 3 mm and 3 mm nonobstructing calculi are seen. At the lower pole, a 4 mm nonobstructing calculus is seen. No focal parenchymal lesions. No hydronephrosis. US/US renal BI IMPRESSION: There are small nonobstructing left renal calculi, as detailed. No right renal calculus is seen. No hydronephrosis or mass is seen bilaterally.
== END 2021-10-27 13:45 | disposition home or self-care (01) ==
LOC: HO.HMGCX 13:44
PROVIDERS: PCP Internal Medicine
DX: N20.0 Calculus of kidney (principal)
CPT/HCPCS: 76775

== ENCOUNTER → 2021-11-18 13:51 | Outpatient (BNVA) | payer OTHER, SELFPAY | PROVIDERS: PCP Internal Medicine; Referring Provider Internal Medicine; Visit Provider Internal Medicine Cardiovascular Disease | DX: I45.5 Other specified heart block (principal); I48.0 Paroxysmal atrial fibrillation; Z79.82 Long term (current) use of aspirin; Z79.01 Long term (current) use of anticoagulants | CPT/HCPCS: 93005 ==

== ENCOUNTER → 2021-12-17 09:59 | Outpatient (BNVA) | payer OTHER, SELFPAY | PROVIDERS: PCP Internal Medicine | DX: Z13.89 Encounter for screening for other disorder (principal) ==

== ENCOUNTER 2022-04-29 13:50 | Outpatient (REF) | payer OTHER, SELFPAY ==
--- NOTE | ~2022-04-29 | US_ITS ---
EXAMINATION: US RETROPERITONEAL LIMITED (RENAL ONLY) CLINICAL INFORMATION: Calculus of kidney. COMPARISON: Ultrasound retroperitoneal limited (renal only) 10/27/2021 and 08/20/2021. CT abdomen and pelvis without contrast 01/05/2020. TECHNIQUE: Real-time imaging of the kidneys. FINDINGS: RIGHT KIDNEY: 10.2 x 5.0 x 5.6 cm (SAG x AP x TRV). The kidney is normal in size, contour, and echogenicity. Renal cortical thickness is normal. No calculi or focal parenchymal lesions. No hydronephrosis. LEFT KIDNEY: 10.1 x 4.5 x 7.0 cm (SAG x AP x TRV). The kidney is normal in size, contour, and echogenicity. Renal cortical thickness is normal. No focal parenchymal lesions or hydronephrosis. There is an echogenic stone in the lower pole measuring 0.34 x 0.26 x 0.34 cm and midpole measuring 0.43 x 0.16 x 0.30 cm. Stone seen in the midpole on previous exam not seen at this time. No caliectasis seen. US/US renal BI IMPRESSION: Small left renal calculi in the midpole and lower pole. No caliectasis or hydronephrosis are seen. The right kidney is unremarkable.
== END 2022-04-29 13:51 | disposition home or self-care (01) ==
LOC: HO.HMGCX 13:50
PROVIDERS: PCP Internal Medicine
DX: N20.0 Calculus of kidney (principal)
CPT/HCPCS: 76775

== ENCOUNTER → 2022-06-16 13:50 | Outpatient (REF) | payer OTHER, SELFPAY | LOC: HO.SL 13:50 | PROVIDERS: PCP Internal Medicine; Visit Provider Nurse Practitioner Family | DX: G47.33 Obstructive sleep apnea (adult) (pediatric) (principal) | CPT/HCPCS: 95806 ==

== ENCOUNTER → 2022-09-06 12:15 | Outpatient (BNVA) | payer OTHER, SELFPAY | PROVIDERS: PCP Internal Medicine; Referring Provider Internal Medicine; Visit Provider Internal Medicine Cardiovascular Disease | DX: Z13.89 Encounter for screening for other disorder (principal) ==

== ENCOUNTER 2022-09-15 12:11 | Outpatient (REF) | payer MEDICARE, OTHER, SELFPAY ==
[2022-09-15 12:26] VITALS: BP 199/96; PULSE 73; RESP 16; TEMP 36.5; O2SAT 98
[2022-09-15 12:32] VITALS: BMI 38.2
[2022-09-15 12:40] VITALS: BP 185/72
[2022-09-15 13:35] VITALS: BP 168/76; PULSE 73; RESP 16; O2SAT 96
--- NOTE | 2022-09-15 13:37 | PM.OP ---
Brief Operative Note Date of Service: 09/15/22 Pre-op diagnosis: End of life, implantable loop recorder Post-op diagnosis: same Procedure: Removal of implantable loop recorder Implants: After obtaining full informed consent patient was brought to the minor surgery suite. Patient was laid on the operating table in supine position. The precordial area was then shaved and prepped in a sterile fashion. The area was then draped and patient was given local anesthesia intradermally subcutaneously over the side of implantable loop recorder. A small incision about 1.5 cm long was then made at the head of the implantable loop recorder. Implantable loop recorder was then removed. The incision site was then closed with Steri-Strips in a sterile fashion. A pressure dressing was then applied. Surgeon: Kenny Adame MD Anesthesia: local Was an Photovoltaic Technician used for this Procedure?: No Photovoltaic Technician: Jonathon García Estimated blood loss (mL): 1 Pathology: none sent Condition: stable Disposition: same day
== END 2022-09-15 12:12 | disposition home or self-care (01) ==
LOC: HO.MS 12:11
PROVIDERS: PCP Internal Medicine; Visit Provider Internal Medicine Cardiovascular Disease
PROC: (CPT 33286; principal; 2022-09-15 13:30)
DX: Z45.010 Encounter for checking and testing of cardiac pacemaker pulse generator [battery] (principal)
CPT/HCPCS: 33286

== ENCOUNTER → 2022-09-24 08:16 | Outpatient (BNVA) | payer OTHER, SELFPAY | PROVIDERS: PCP Internal Medicine; Visit Provider Internal Medicine Cardiovascular Disease | DX: Z13.89 Encounter for screening for other disorder (principal) ==

== ENCOUNTER 2023-03-24 08:24 | Outpatient (AMB) | payer OTHER, SELFPAY ==
--- NOTE | 2023-03-24 08:41 | A.OFFVIS_ITS ---
Intake Vital Signs 03/24/23 08:42 Height 6 ft Weight 279 lb 8.738 oz BMI 37.9 BP 114/74 Blood Pressure Location Lt brachial Position Sitting Pulse 83 Intake Visit Reasons: 6 month follow up Intake Note: 6 month follow up w/ EKG Manager Membership Required: No Accompanied by: Self / Same As Patient Allergies oxycodone [From PERCOCET] Adverse Reaction (Unknown, Verified 03/24/23 08:44) FEEL LIKE I AM FLOATING Medication List - Last Reconciled 03/24/23 by Kenny Adame MD allopurinol 100 mg PO DAILY 90 days atorvastatin 10 mg PO DAILY blood sugar diagnostic As directed cyanocobalamin (vitamin B-12) 1 tab PO DAILY dulaglutide (Trulicity) 1.5 mg subcut QWEEK dulaglutide (Trulicity) 1.5 mg subcut QWEEK ferrous sulfate 1 tab PO DAILY glipizide ER 5 mg PO QAM omeprazole 20 mg PO DAILY pyridoxine (vitamin B6) 100 mg PO DAILY valsartan (Diovan) 320 mg See Protocol PO DAILY warfarin 5 mg PO DAILY@1600 HPI HPI Comments History of Present Illness Details Parmjit comes for follow-up. From cardiac perspective he has been doing well. He has started to walk a low bit more. Denies any worsening shortness of breath, orthopnea, PND, leg edema. Blood pressure is generally well controlled. No lightheadedness, syncope. He denies any prolonged palpitation irregular heartbeat. Denies any issues with warfarin. No bleeding issues or neurologic events. Being followed by [facility] at [facility] Medical History MAXIMILIAN (acute kidney injury) B12 deficiency CKD (chronic kidney disease) stage 3, GFR 30-59 ml/min CVA (cerebral vascular accident) Diabetes Diverticulitis Gout HTN (hypertension) Implantable loop recorder present ROBERTO (obstructive sleep apnea) Paroxysmal atrial fibrillation Venous insufficiency Surgical History S/P patent foramen ovale closure Family History Mother No problems noted. Father No problems noted. Social History Household Members: None Housing: House Do you presently have visiting nurse or other home services: No Alcohol intake: former Patient Tobacco Use Status: Never used Tobacco Review of Systems Const Denies weakness ENT Denies dizziness Card Denies chest pain, Denies chest pain with activity, Denies syncope, Denies rapid heart rate, Denies pedal edema, Denies edema, Denies leg edema, Denies lightheadedness, Denies palpitations, Denies dyspnea, Denies dyspnea on exertion and Denies orthopnea Resp Denies cough, Denies dyspnea and Denies dyspnea on exertion GI Denies hematochezia and Denies change in stool character Musc Denies abnormal gait, Denies muscle cramps, Denies muscle weakness, Denies numbness, Denies radiating pain into limb and Denies tingling Neuro Denies abnormal gait, Denies dizziness, Denies syncope, Denies numbness, Denies tingling and Denies weakness Endo Denies palpitations Physical Exam Vital Signs: Last Vital Signs Pulse 83 03/24/23 08:42 BP 114/74 03/24/23 08:42 BMI result Body Mass Index 37.9 Const General: cooperative, comfortable and no acute distress HEENT Head: Yes normal to inspection Neck Neck: Yes normal visual inspection Chest Chest palpation & inspection: other (Wound at the removal site is clean and closed) Resp Effort & Inspection: normal respiratory effort Auscultation: clear to auscultation bilaterally, no crackles, no rales, no rhonchi and no wheezes Cardio Jugular venous distension: no JVD Rate: regular rate Rhythm: regular rhythm Heart sounds: S1 normal heart sound present, S2 normal heart sound present, no gallops, no murmurs and no rubs GI Inspection: Yes normal to inspection Psych Appearance: grossly normal Mental Status: mental status grossly normal Speech and movement: Normal speech and movement present Office Procedures EKG Details: EKG shows normal sinus rhythm with incomplete right bundle-branch block and left anterior fascicular block with RV enlargement [id number], Complete Assessment & Plan Assessment & Plan (1) Paroxysmal atrial fibrillation: Code(s): I48.0 - Paroxysmal atrial fibrillation Plan: Patient with prior history of paroxysmal atrial fibrillation without any obvious clinical recurrence at this point in time. Continue medical therapy and report any new symptoms. Currently does not require any rate lowering medications. Currently on full oral anticoagulation warfarin. Continue the same. Target INR between 2 and 3 being followed by [facility]mad[facility] Clinic. (2) S/P patent foramen ovale closure: Comment: 22 years ago Code(s): Z87.74 - Personal history of (corrected) congenital malformations of heart and circulatory system Plan: Status post reported PFO closure could have in the 30 November SD closure in the past more than 20 years ago. No symptoms related to it. Currently on warfarin therapy. (3) Bifascicular block: Comment: Noted on EKG Code(s): I45.2 - Bifascicular block Plan: Patient with prior sinus pauses as well as sinus bradycardia bifascicular block. Heart rate improved since stopping rate lowering medications. No symptoms related to it. No interventions required including pacing therapy at this point time. Avoid Myrna rate lowering medications. Will follow up in the clinic in 1 year's time, sooner p.r.n.. Thank you for allowing me to partake in his care Coding Level of Care Code Est Pt Level 4 (66791) Diagnoses Paroxysmal atrial fibrillation I48.0 S/P patent foramen ovale closure Z87.74 Bifascicular block I45.2 CPT Codes EKG - CPT: 28417-[id number], Complete ([id number])
[2023-03-24 08:42] VITALS: BP 114/74; PULSE 83; BMI 37.9
== END 2023-03-24 09:02 | disposition home or self-care (01) ==
PROVIDERS: PCP Internal Medicine; Referring Provider Internal Medicine; Visit Provider Internal Medicine Cardiovascular Disease
DX: I48.0 Paroxysmal atrial fibrillation (principal); Z87.74 Personal history of (corrected) congenital malformations of heart and circulatory system; I45.2 Bifascicular block
CPT/HCPCS: 93010; 99214

== ENCOUNTER → 2023-03-24 08:24 | Outpatient (BNVA) | payer OTHER, SELFPAY | PROVIDERS: PCP Internal Medicine; Referring Provider Internal Medicine; Visit Provider Internal Medicine Cardiovascular Disease | DX: I48.0 Paroxysmal atrial fibrillation (principal); I45.2 Bifascicular block; Z87.74 Personal history of (corrected) congenital malformations of heart and circulatory system; Z79.01 Long term (current) use of anticoagulants | CPT/HCPCS: 93005 ==

== ENCOUNTER 2023-06-02 09:55 | Outpatient (REF) | payer OTHER, SELFPAY ==
--- NOTE | ~2023-06-02 | US_ITS ---
EXAMINATION: US RETROPERITONEAL LIMITED (RENAL ONLY) CLINICAL INFORMATION: Calculus of kidney. COMPARISON: Renal ultrasound 05/29/2022 and 10/27/2021. CT abdomen and pelvis 01/05/2020. TECHNIQUE: Real-time imaging of the kidneys. Technically limited study secondary to body habitus. FINDINGS: RIGHT KIDNEY: 10.1 x 4.8 x 4.8 cm (SAG x AP x TRV). The kidney is normal in size, contour, and echogenicity. Renal cortical thickness is normal. No calculi or focal parenchymal lesions. No hydronephrosis. LEFT KIDNEY: 9.5 x 5.3 x 4.9 cm (SAG x AP x TRV). The kidney is normal in size, contour, and echogenicity. Renal cortical thickness is normal. No focal parenchymal lesions or hydronephrosis. Nonobstructive left renal calculi the largest measuring up to 5 mm. US/US renal BI IMPRESSION: Nonobstructive left renal calculi the largest measuring up to 5 mm without hydronephrosis.
== END 2023-06-02 09:56 | disposition home or self-care (01) ==
LOC: HO.HMGCX 09:55
PROVIDERS: Visit Provider Urology
DX: N20.0 Calculus of kidney (principal)
CPT/HCPCS: 76775

== ENCOUNTER 2023-06-16 10:47 | Outpatient (AMB) | payer OTHER, SELFPAY ==
--- NOTE | 2023-06-16 10:52 | MHC.OFFVIS ---
Intake Intake Visit Reasons: one yr nephrolithiasis follow up with [facility] Intake Note: Patient is Present for Follow Up Urology Medication: Vitamin B6 Antibiotic Allergies: None Blood Thinners: Warfarin Allergies oxycodone [From PERCOCET] Adverse Reaction (Unknown, Verified 06/16/23 11:09) FEEL LIKE I AM FLOATING Medication List - Last Reconciled 06/16/23 by Kun Seth MD allopurinol 100 mg PO DAILY 90 days atorvastatin 10 mg PO DAILY blood sugar diagnostic As directed cyanocobalamin (vitamin B-12) 1 tab PO DAILY dulaglutide (Trulicity) 1.5 mg subcut QWEEK dulaglutide (Trulicity) 1.5 mg subcut QWEEK ferrous sulfate 1 tab PO DAILY glipizide ER 5 mg PO QAM omeprazole 20 mg PO DAILY pyridoxine (vitamin B6) 100 mg PO DAILY valsartan (Diovan) 320 mg See Protocol PO DAILY warfarin 5 mg PO DAILY@1600 HPI HPI Comments History of Present Illness Details Parmjit is a very pleasant male. He is a patient of Dr Mendez. He is seen for the following urologic conditions. - nephrolithiasis Twelve month follow-up Small stone left side 5 mm Unchanged Encourage fluids Twelve month follow-up Effective urinary parameters. Nocturia x1. Minimal hesitancy. Adequate stream. Nephrolithiasis/Urolithiasis: They are here for further evaluation of nephrolithiasis, followup after stone procedure. Urolithiasis was diagnosed [facility] 01/18 admit for stones, USR with stent placement . The patient previously had kidney stones whose composition w 01/18 80% uric acid, 20% calcium oxalate. Prior treatment(s) include 01/18 , left, ureteroscopy. Prior imaging includes 02/17 4 mm left on ultrasound - 08/21 renal ultrasound 4 mm left side - 10/20 renal ultrasound small stones seen left side Current therapeutic plan will be to continue with imaging surveillance [facility] Medical History (Updated 06/16/23 @ 11:30 by Kun Seth MD) Implantable loop recorder present Paroxysmal atrial fibrillation CKD (chronic kidney disease) stage 3, GFR 30-59 ml/min ROBERTO (obstructive sleep apnea) Diverticulitis Venous insufficiency B12 deficiency Gout CVA (cerebral vascular accident) Diabetes MAXIMILIAN (acute kidney injury) HTN (hypertension) Surgical History S/P patent foramen ovale closure Family History Mother No problems noted. Father No problems noted. Social History Household Members: None Housing: House Do you presently have visiting nurse or other home services: No Alcohol intake: former Patient Tobacco Use Status: Never used Tobacco Review of Systems Const Denies chills and Denies fever(s) Card Reports no additional complaints and Denies syncope Resp Denies cough GI Denies abdominal pain and Denies heartburn Reports as per HPI and Denies change in libido Neuro Denies syncope Psych Denies change in libido Endo Denies change in libido Physical Exam Const General: cooperative, healthy appearing, comfortable and no acute distress Orientation/consciousness: patient oriented x3 HEENT Face and sinus: Yes normal facial exam Mouth: moist mucous membranes Neck Neck: Yes normal visual inspection, Yes full ROM and Yes trachea midline Chest Chest palpation & inspection: normal inspection of the chest Resp Effort & Inspection: normal respiratory effort, able to speak in complete sentences and no respiratory distress GI Inspection: Yes normal to inspection Back/Spine/Pelvis Cervical Spine: normal cervical lordosis Thoracic/Lumbar Spine: thoracic and lumbar spine normal to inspection Skin General skin exam: no rashes or lesions noted Neuro General: patient oriented x3, gait normal, tone normal and moves all extremities Extrem General: Yes normal to inspection and Yes capillary refill normal Assessment & Plan Assessment & Plan (1) Nephrolithiasis: Code(s): N20.0 - Calculus of kidney Plan 12 month follow-up renal ultrasound Orders: Orders US renal BI 364 Days N20.0 - Calculus of kidney Patient Instructions: Imaging studies, laboratory and physical exam results were discussed and reviewed in detail. No major barriers to patient understanding were identified. An opportunity to ask questions regarding the treatment plan was provided. All questions were answered. The patient expressed understanding and agreement with the above treatment plan. The patient is aware they should contact our office by phone for worsening of their current condition or the appearance of new urologic symptoms. Compliance is encouraged with any medications and followup testing that is ordered. It is a privilege to participate in the urologic care of your patient. If you have any questions or concerns regarding treatment for the above conditions, or other urologic issues, please do not hesitate to contact me. The office telephone contact is [phone]. This note is constructed using voice recognition software. While every effort has been made to ensure accuracy radiology transcriptionist errors may have been included. Yours sincerely, Dr Kun Seth MD, [facility] - Urology Providers of Expert, Compassionate Care for the Genitourinary System Coding Level of Care Code Est Pt Level 4 (29083) Diagnoses Nephrolithiasis N20.0
== END 2023-06-16 11:33 | disposition home or self-care (01) ==
PROVIDERS: Visit Provider Urology
DX: N20.0 Calculus of kidney (principal)
CPT/HCPCS: 99213

== ENCOUNTER → 2023-06-16 10:47 | Outpatient (BNVA) | payer OTHER, SELFPAY | PROVIDERS: Visit Provider Urology ==

== ENCOUNTER 2024-04-12 13:27 | Outpatient (AMB) | payer OTHER, SELFPAY ==
--- NOTE | 2024-04-12 13:34 | MHC.OFFVIS ---
Vital Signs 04/12/24 13:45 Height 6 ft Weight 257 lb 15.053 oz BMI 35.0 BP 120/74 Blood Pressure Location Lt brachial Pulse 69 Intake Visit Reasons: r/s 04/03/24 1 year followup w/ekg Intake Note: 1 year follow-up with ekg feeling good Machine Puller Over Required: No Allergies oxycodone [From PERCOCET] Adverse Reaction (Unknown, Verified 06/16/23 11:09) FEEL LIKE I AM FLOATING Medication List - Last Reconciled 04/12/24 by Kenny Adame MD allopurinol 100 mg PO DAILY 90 days atorvastatin 10 mg PO DAILY blood sugar diagnostic As directed cyanocobalamin (vitamin B-12) 1 tab PO DAILY dulaglutide (Trulicity) 1.5 mg subcut QWEEK dulaglutide (Trulicity) 1.5 mg subcut QWEEK ferrous sulfate 1 tab PO DAILY glipizide ER 5 mg PO BID omeprazole 20 mg PO DAILY pyridoxine (vitamin B6) 100 mg PO DAILY valsartan (Diovan) 320 mg See Protocol PO DAILY warfarin 5 mg PO DAILY@1600 HPI Comments Details: Parmjit comes for follow-up. No new cardiac complaints. Denies any symptoms of lightheadedness, syncope. Denies any symptoms of prolonged irregular heartbeat or palpitations. Denies any exertional chest pain. No worsening shortness of breath. No orthopnea, PND. No bleeding issues or neurologic events. [facility] Medical History Implantable loop recorder present Paroxysmal atrial fibrillation CKD (chronic kidney disease) stage 3, GFR 30-59 ml/min ROBERTO (obstructive sleep apnea) Diverticulitis Venous insufficiency B12 deficiency Gout CVA (cerebral vascular accident) Diabetes MAXIMILIAN (acute kidney injury) HTN (hypertension) Surgical History S/P patent foramen ovale closure Family History Mother No problems noted. Father No problems noted. Social History Household Members: None Housing: House Do you presently have visiting nurse or other home services: No Alcohol intake: former Patient Tobacco Use Status: Never used Tobacco Review of Systems Const Denies chills, Denies fatigue, Denies fever(s), Denies frequent falls, Denies weakness, Denies weight gain and Denies weight loss ENT Denies dizziness Card Denies chest pain, Denies leg edema, Denies lightheadedness, Denies palpitations, Denies dyspnea, Denies dyspnea on exertion, Denies orthopnea and Denies other (loss of consciousness) Resp Denies cough, Denies dyspnea and Denies dyspnea on exertion GI Denies hematochezia and Denies change in stool character Musc Denies abnormal gait, Denies muscle weakness, Denies numbness, Denies radiating pain into limb and Denies tingling Neuro Denies abnormal gait, Denies dizziness, Denies frequent falls, Denies numbness, Denies tingling and Denies weakness Endo Denies fatigue and Denies palpitations Physical Exam Vital Signs: Last Vital Signs Pulse 69 04/12/24 13:45 BP 120/74 04/12/24 13:45 BMI result Body Mass Index 35.0 Const General: cooperative, comfortable and no acute distress HEENT Head: Yes normal to inspection Neck Neck: Yes normal visual inspection Chest Chest palpation & inspection: other (Wound at the removal site is clean and closed) Resp Effort & Inspection: normal respiratory effort Auscultation: clear to auscultation bilaterally, no crackles, no rales, no rhonchi and no wheezes Cardio Jugular venous distension: no JVD Rate: regular rate Rhythm: regular rhythm Heart sounds: S1 normal heart sound present, S2 normal heart sound present, no gallops, no murmurs and no rubs GI Inspection: Yes normal to inspection Psych Appearance: grossly normal Mental Status: mental status grossly normal Speech and movement: Normal speech and movement present Office Procedures EKG Details: EKG shows normal sinus rhythm with right bundle branch block and left anterior fascicular block with minimal voltage criteria for LVH, unchanged [id number], Complete Assessment & Plan Assessment & Plan (1) Paroxysmal atrial fibrillation: Code(s): I48.0 - Paroxysmal atrial fibrillation Category: Medical Plan: Paroxysmal atrial fibrillation without any overt recurrence at this point time. Continue current medical therapy with warfarin which she prefers. Being followed by [facility]. Maintain target INR between 2 and 3. Avoiding any rate control medication due to prior history of slow heart rate. Advised to avoid stimulants. Continue participate in regular physical activity and weight loss program. CHADSVASc core of at least 4. (2) S/P patent foramen ovale closure: Comment: 22 years ago Code(s): Z87.74 - Personal history of (corrected) congenital malformations of heart and circulatory system Category: Surgical Plan: Status post PFO closure. No clinical recurrence. Currently on warfarin therapy. (3) Bifascicular block: Comment: Noted on EKG Code(s): I45.2 - Bifascicular block Category: Medical Plan: Bifascicular block without any obvious symptoms. No indication for pacemaker therapy. Advised to call me with any symptoms of lightheadedness or syncope. Will continue monitor clinically on annual basis. Follow up clinic 1 year's time, sooner p.r.n.. Thank you allowing me to partake in his care Orders: Orders CA echo transthoracic complete 1 Year I48.0 - Paroxysmal atrial fibrillation Coding Level of Care Code Est Pt Level 4 (47981) Diagnoses Paroxysmal atrial fibrillation I48.0 S/P patent foramen ovale closure Z87.74 Bifascicular block I45.2 CPT Codes EKG - CPT: [id number], Complete ([id number])
[2024-04-12 13:45] VITALS: BP 120/74; PULSE 69; BMI 35.0
== END 2024-04-12 14:13 | disposition home or self-care (01) ==
PROVIDERS: PCP Internal Medicine; Visit Provider Internal Medicine Cardiovascular Disease
DX: I48.0 Paroxysmal atrial fibrillation (principal); Z87.74 Personal history of (corrected) congenital malformations of heart and circulatory system; I45.2 Bifascicular block
CPT/HCPCS: 93010; 99214

== ENCOUNTER → 2024-04-12 13:27 | Outpatient (BNVA) | payer OTHER, SELFPAY | PROVIDERS: PCP Internal Medicine; Visit Provider Internal Medicine Cardiovascular Disease | DX: I48.0 Paroxysmal atrial fibrillation (principal); I45.2 Bifascicular block; Z87.74 Personal history of (corrected) congenital malformations of heart and circulatory system; Z79.01 Long term (current) use of anticoagulants | CPT/HCPCS: 93005 ==

== ENCOUNTER 2024-06-05 09:30 | Outpatient (REF) | payer OTHER, SELFPAY | END 2024-06-05 09:31 | disposition home or self-care (01) | LOC: HO.US 09:30 | PROVIDERS: PCP Internal Medicine; Visit Provider Urology | DX: N20.0 Calculus of kidney (principal) | CPT/HCPCS: 76775 ==

== ENCOUNTER 2024-06-19 09:52 | Outpatient (AMB) | payer OTHER, SELFPAY ==
--- NOTE | 2024-06-19 10:28 | A.OFFVIS_ITS ---
Intake Visit Reasons: 1y/US(SET) Intake Note: Patient is present for Ultrasound follow up Urology Med: Allopurinol, Vitamin B6 Antibiotic Allergy: None Blood Thinner: Warfarin Renal Ultrasound- 06/05/2024 Urban Anthropologist Required: No Accompanied by: Self / Same As Patient Allergies oxycodone [From PERCOCET] Adverse Reaction (Unknown, Verified 06/19/24 10:35) FEEL LIKE I AM FLOATING HPI Comments Details: Parmjit is a very pleasant male. He is a patient of Dr Mendez. He is seen for the following urologic conditions. - nephrolithiasis Twelve month follow-up Small stone left side 4 mm unchanged Encourage lemon water JAYME 2+ prostate normal effective voiding parameters Effective urinary parameters. Nocturia x1. Minimal hesitancy. Adequate stre am. Nephrolithiasis/Urolithiasis: They are here for further evaluation of nephrolithiasis, followup after stone procedure. Urolithiasis was diagnosed [facility] [place] [facility] [place] for stones, USR with stent placement . The patient previously had kidney stones whose composition w 01/18 80% uric acid, 20% calcium oxalate. Prior treatment(s) include 01/18 , left, ureteroscopy. Prior imaging includes 02/17 4 mm left on ultrasound - 08/21 renal ultrasound 4 mm left side - 10/20 renal ultrasound small stones seen left side - 05/24 renal ultrasound small stones left side 4 mm Current therapeutic plan will be to continue with imaging surveillance [facility] Medical History Implantable loop recorder present Paroxysmal atrial fibrillation CKD (chronic kidney disease) stage 3, GFR 30-59 ml/min ROBERTO (obstructive sleep apnea) Diverticulitis Venous insufficiency B12 deficiency Gout CVA (cerebral vascular accident) Diabetes MAXIMILIAN (acute kidney injury) HTN (hypertension) Surgical History S/P patent foramen ovale closure Family History Mother No problems noted. Father No problems noted. Social History Household Members: None Housing: House Do you presently have visiting nurse or other home services: No Alcohol intake: former Patient Tobacco Use Status: Never used Tobacco Review of Systems Const Denies chills and Denies fever(s) Card Reports no additional complaints and Denies syncope Resp Denies cough GI Denies abdominal pain and Denies heartburn Reports as per HPI and Denies change in libido Neuro Denies syncope Psych Denies change in libido Endo Denies change in libido Physical Exam Const General: cooperative, healthy appearing, comfortable and no acute distress Orientation/consciousness: patient oriented x3 HEENT Face and sinus: Yes normal facial exam Mouth: moist mucous membranes Neck Neck: Yes normal visual inspection, Yes full ROM and Yes trachea midline Chest Chest palpation & inspection: normal inspection of the chest Resp Effort & Inspection: normal respiratory effort, able to speak in complete sentences and no respiratory distress GI Inspection: Yes normal to inspection Rectal Exam - Male: Yes normal sphincter tone and Yes prostate normal Male General Exam: Yes normal external exam Penis: normal penis and circumcised Meatus: meatus normal Scrotum: scrotum normal Testes: Testes normal Back/Spine/Pelvis Cervical Spine: normal cervical lordosis Thoracic/Lumbar Spine: thoracic and lumbar spine normal to inspection Skin General skin exam: no rashes or lesions noted Neuro General: patient oriented x3, gait normal, tone normal and moves all extremities Extrem General: Yes normal to inspection and Yes capillary refill normal Assessment & Plan Assessment & Plan (1) Nephrolithiasis: Code(s): N20.0 - Calculus of kidney Category: Medical Plan Recommend lemon water Continue with vitamin B6 and allopurinol 12 month follow-up imaging Patient Instructions: Imaging studies, laboratory and physical exam results were discussed and reviewed in detail. No major barriers to patient understanding were identified. An opportunity to ask questions regarding the treatment plan was provided. All questions were answered. The patient expressed understanding and agreement with the above treatment plan. The patient is aware they should contact our office by phone for worsening of their current condition or the appearance of new urologic symptoms. Compliance is encouraged with any medications and followup testing that is ordered. It is a privilege to participate in the urologic care of your patient. If you have any questions or concerns regarding treatment for the above conditions, or other urologic issues, please do not hesitate to contact me. The office telephone contact is [phone]. This note is constructed using voice recognition software. While every effort has been made to ensure accuracy rubber flap tuber machine operator errors may have been included. Yours sincerely, Dr Kun Seth MD, [facility] - Urology Providers of Expert, Compassionate Care for the Genitourinary System Coding Level of Care Code Est Pt Level 4 (33781) Diagnoses Nephrolithiasis N20.0
== END 2024-06-19 11:17 | disposition home or self-care (01) ==
PROVIDERS: PCP Internal Medicine; Visit Provider Urology
DX: N20.0 Calculus of kidney (principal)
CPT/HCPCS: 99214